=== PATIENT | male | born 1955 | race Caucasian/White ===

== ENCOUNTER 2016-10-27 18:41 | Emergency (ER) | payer BC ==
[~2016-10-27] VITALS: Ht 188 cm; Wt 147.0 kg
[~2016-10-27 18:41] MED LIST: DABI150 PO; FLEC100 PO; FURO1TAB93 PO; GLUC1000 PO; HYDR200T42 PO; JANU100T PO; LIPO150C3 PO; METH2.5 PO; METH4PAK PO; METO50TA PO; MINO50TA PO; OMEP20TA39 PO; PRAV20 PO; TAMS0.4C67 PO
[2016-10-27 18:46] VITALS: BP 110/59; PULSE 90; RESP 28; TEMP 101.8; O2SAT 97
--- NOTE | 2016-10-27 19:54 | PD ---
HPI Chief Complaint: GI Complaint Time Seen by Provider: 19:40 Travel History International Travel<30 days: No Contact w/Intl Traveler<30days: No History of Present Illness HPI 61-year-old male complaining of nausea and shaking chills. Patient states that the symptoms started this afternoon. Patient denies any headache. Patient denies any visual change. Patient denies any neck pain. Patient denies any chest pain or shortness of breath. Patient states that he has mild dry cough. Patient denies abdominal pain. Patient denies any vomiting or diarrhea. Patient denies any dysuria or frequency. Patient denies any back pain. Patient denies any focal weakness or numbness of the extremity. Patient states that he had flu shot a few months ago. Patient was seen by personal physician recently for anemia. Hemocculted stool was negative. Patient has been seen by GI specialist for that also. Patient pending endoscopy. PFSH Past Medical History Cancer: Yes (TESTICULAR) Cardiovascular Problems: Yes (CAD) Diabetes: Yes Hypertension: Yes Respiratory: Yes (SOB) Past Surgical History Pacemaker: No Social History Alcohol Use: Yes Tobacco Use: No (FORMER) Substance Use: No Allergies-Medications (Allergen,Severity, Reaction): Coded Allergies: Polysporin (Verified Allergy, Mild, Rash, 10/27/16) Reported Meds & Prescriptions Reported Meds & Active Scripts Active Reported Minocycline (Minocycline HCl) 50 Mg Cap 50 Mg PO BID Plaquenil (Hydroxychloroquine Sulfate) 200 Mg Tab 200 Mg PO BID Take with food Lasix (Furosemide) 40 Mg Tab 40 Mg PO DAILY Flecainide (Flecainide Acetate) 100 Mg Tab 100 Mg PO BID Lipofen (Fenofibrate) 150 Mg Cap 150 Mg PO HS Metformin (Metformin HCl) 1,000 Mg Tab 1,000 Mg PO BIDPC With meals Metoprolol Tartrate 50 Mg Tab 50 Mg PO TID Pradaxa (Dabigatran) 150 Mg Cap 150 Mg PO BID Pravastatin 20 Mg Tab 20 Mg PO DAILY Januvia (Sitagliptin Phosphate) 100 Mg Tab 100 Mg PO DAILY Flomax (Tamsulosin HCl) 0.4 Mg Cap 0.4 Mg PO HS Minocycline Hcl (Minocycline HCl) 50 Mg Cap 50 Mg PO DAILY Review of Systems General / Constitutional: Positive: Chills, No: Fever Eyes: No: Visual changes HENT: No: Headaches Cardiovascular: No: Chest Pain or Discomfort Respiratory: No: Shortness of Breath Gastrointestinal: Positive: Nausea, No: Abdominal Pain Genitourinary: No: Dysuria Musculoskeletal: No: Pain Skin: No Rash Neurologic: No: Weakness Psychiatric: No: Depression Endocrine: No: Polydipsia Hematologic/Lymphatic: No: Easy Bruising Physical Exam Narrative GENERAL: Well-nourished, well-developed patient. SKIN: Warm and dry. HEAD: Normocephalic. EYES: No scleral icterus. No injection or drainage. NECK: Supple, trachea midline. No JVD or lymphadenopathy. CARDIOVASCULAR: Regular rate and rhythm without murmurs, gallops, or rubs. RESPIRATORY: Breath sounds equal bilaterally. No accessory muscle use. GASTROINTESTINAL: Abdomen soft, non-tender, nondistended. MUSCULOSKELETAL: No cyanosis, or edema. BACK: Nontender without obvious deformity. No CVA tenderness. Neurologic exam normal. Data Data Last Documented VS Vital Signs Date Time Temp Pulse Resp B/P Pulse Ox O2 Delivery O2 Flow Rate FiO2 10/27/16 18:46 101.8 90 28 110/59 97 Room Air Orders Electrocardiogram (10/27/16 19:48) Complete Blood Count With Diff (10/27/16 19:48) Comprehensive Metabolic Panel (10/27/16 19:48) Troponin I (10/27/16 19:48) Urinalysis - C+S If Indicated (10/27/16 19:48) Influenzae A/B Antigen (10/27/16 19:48) Chest, Single Ap (10/27/16 19:48) Iv Access Insert/Monitor (10/27/16 19:48) Ecg Monitoring (10/27/16 19:48) Oximetry (10/27/16 19:48) Sodium Chlor 0.9% 1000 Ml Inj (Ns 1000 M (10/27/16 20:00) Ondansetron Inj (Zofran Inj) (10/27/16 20:00) Acetaminophen (Tylenol) (10/27/16 20:00) Labs Laboratory Tests Test 10/27/16 10/27/16 10/27/16 20:00 22:11 22:20 Sodium Level 134 MEQ/L Potassium Level 3.8 MEQ/L Chloride Level 101 MEQ/L Carbon Dioxide Level 20.7 MEQ/L Anion Gap 12 MEQ/L Blood Urea Nitrogen 14 MG/DL Creatinine 1.61 MG/DL Estimat Glomerular Filtration 44 ML/MIN Rate Random Glucose 93 MG/DL Calcium Level 8.6 MG/DL Total Bilirubin 0.5 MG/DL Aspartate Amino Transf 44 U/L (AST/SGOT) Alanine Aminotransferase 25 U/L (ALT/SGPT) Alkaline Phosphatase 50 U/L Troponin I LESS THAN 0.02 NG/ML Total Protein 8.1 GM/DL Albumin 3.4 GM/DL White Blood Count 6.0 TH/MM3 Red Blood Count 2.58 MIL/MM3 Hemoglobin 8.7 GM/DL Hematocrit 26.2 % Mean Corpuscular Volume 101.5 FL Mean Corpuscular Hemoglobin 33.6 PG Mean Corpuscular Hemoglobin 33.1 % Concent Red Cell Distribution Width 17.0 % Platelet Count 129 TH/MM3 Mean Platelet Volume 8.6 FL Neutrophils (%) (Auto) 88.1 % Lymphocytes (%) (Auto) 6.9 % Monocytes (%) (Auto) 4.4 % Eosinophils (%) (Auto) 0.1 % Basophils (%) (Auto) 0.5 % Neutrophils # (Auto) 5.3 TH/MM3 Lymphocytes # (Auto) 0.4 TH/MM3 Monocytes # (Auto) 0.3 TH/MM3 Eosinophils # (Auto) 0.0 TH/MM3 Basophils # (Auto) 0.0 TH/MM3 CBC Comment AUTO DIFF Differential Comment AUTO DIFF CONFIRMED Tear Drop Cells 1+ Ovalocytes 1+ Urine Color DARK-YELLOW Urine Turbidity HAZY Urine pH 5.0 Urine Specific Jber 1.019 Urine Protein 30 mg/dL Urine Glucose (UA) NEG mg/dL Urine Ketones TRACE mg/dL Urine Occult Blood NEG Urine Nitrite NEG Urine Bilirubin NEG Urine Urobilinogen 2.0 MG/DL Urine Leukocyte Esterase NEG Urine RBC 1 /hpf Urine WBC 2 /hpf Urine Squamous Epithelial 1 /hpf Cells Urine Hyaline Casts 18 /lpf Urine Mucus FEW /lpf Microscopic Urinalysis Comment CULT NOT INDICATED MDM Medical Decision Making Medical Screen Exam Complete: Yes Emergency Medical Condition: Yes Interpretation(s) Last Impressions Chest X-Ray 10/27/161947 Signed Impressions: Service Date/Time: Thursday, October 27, 2016 20:13 - CONCLUSION: Cardiomegaly without evidence of significant congestion or consolidating airspace disease. Milan Feldman MD 23:35 PM. CBC WBC 6.0. Hemoglobin 8.7 hematocrit 26.2. MCV 101.5. Platelet 129. 88 neutrophil. Sodium 134. Bicarbonate 20.7. Creatinine 1.61. Cardiac enzymes are normal. UA is negative. Differential Diagnosis Differential diagnosis including viral syndrome, bronchitis, pneumonia, UTI, sepsis. Narrative Course 61-year-old male with shaking chills and nausea. The symptoms started this afternoon. Normal saline solution 1 L IV bolus. Zofran 4 mg IV. Diagnosis Primary Impression: Viral syndrome Additional Impressions: Anemia Qualified Code: D64.9 - Anemia, unspecified type Renal insufficiency Patient Instructions: General Instructions Additional Instructions: Tylenol for fever aching pain. Follow-up with personal physician. Return if persistent problem or worse. Med/Other Pt SpecificInfo: Prescription(s) given, No Change to Meds Scripts Ondansetron Odt (Zofran Odt)4 Mg Tab4 Mg SL Q6HR PRN (Nausea/Vomiting) #10 TAB Prov:Wally Michaels MD 10/27/16 Disposition: DISCHARGE HOME Condition: Stable Wally Michaels MD Oct 27, 2016 19:54 Wally Michaels MD Oct 27, 2016 19:54
[2016-10-27] MEDS ORDERED: ACETAMINOPHEN 325 MG TAB PO ONE (20:00)
[2016-10-27] MEDS ORDERED: SODIUM CHLOR 0.9% 1000 ML INJ 1,000 ML IV ONE (20:00)
[2016-10-27] MEDS ORDERED: ONDANSETRON HCL 4 MG/2 ML VIAL IV PUSH ONE (20:00)
[2016-10-27] MEDS ORDERED: FURO1TAB60 PO (20:33)
[2016-10-27] MEDS ORDERED: METO50TA PO (20:33)
[2016-10-27] MEDS ORDERED: METF1000 PO (20:33)
[2016-10-27] MEDS ORDERED: MINO50CA PO (20:33)
[2016-10-27] MEDS ORDERED: PRAD150C PO (20:33)
[2016-10-27] MEDS ORDERED: TAMS5CAP PO (20:33)
[2016-10-27] MEDS ORDERED: LIPO150C3 PO (20:33)
[2016-10-27] MEDS ORDERED: SITA1TAB2 PO (20:33)
[2016-10-27] MEDS ORDERED: PLAQ200T PO (20:33)
[2016-10-27] MEDS ORDERED: FLEC100T PO (20:33)
[2016-10-27] MEDS ORDERED: PRAV20TA2 PO (20:33)
--- NOTE | 2016-10-27 20:59 | RADRPT ---
EXAM DATE/TIME: 10/27/2016 20:13 [facility] COMPARISON: No previous studies available for comparison. INDICATIONS : Chest pain. Fever. MEDICAL HISTORY : Diabetes mellitus type II. SURGICAL HISTORY : Ablation x 2 ENCOUNTER: Initial ACUITY: 2 days PAIN SCORE: 2/10 LOCATION: chest FINDINGS: Heart is moderately enlarged. There is no evidence of significant airspace disease or significant congestion. Osseous structures are intact. CONCLUSION: Cardiomegaly without evidence of significant congestion or consolidating airspace disease. Milan Feldman MD on October 27, 2016 at 20:57 Board Certified Radiologist. This report was verified electronically.
[2016-10-27 22:18] LABS: ALKALINE PHOSPHATASE 50 U/L (45-117); ALT (GPT) 25 U/L (12-78); ANION GAP 12 MEQ/L (5-15); AST (GOT) 44 U/L (15-37); BICARBONATE 20.7 MEQ/L (21.0-32.0); BLOOD UREA NITROGEN 14 MG/DL (7-18); CHLORIDE 101 MEQ/L (98-107); GLOMERULAR FILTRATION RATE 44 ML/MIN (>89); SODIUM (NA) 134 MEQ/L (136-145); TOTAL BILIRUBIN ADULT 0.5 MG/DL (0.2-1.0)
[2016-10-27 22:19] LABS: POTASSIUM 3.8 MEQ/L (3.5-5.1)
[2016-10-27 22:23] LABS: AUTOMATED NEUTROPHIL # 5.3 TH/MM3 (1.8-7.7); BASOPHIL % 0.5 % (0.0-2.0); EOSINOPHIL % 0.1 % (0.0-4.0); HEMATOCRIT 26.2 % (39.0-51.0); LYMPH % 6.9 % (9.0-44.0); LYMPHOCYTE # 0.4 TH/MM3 (1.0-4.8); MEAN CELL VOLUME 101.5 FL (80.0-100.0); MEAN CORPUSCULAR HEMOGLOBIN 33.6 PG (27.0-34.0); MEAN CORPUSCULAR HGB CONC 33.1 % (32.0-36.0); MONO % 4.4 % (0.0-8.0); NEUT % 88.1 % (16.0-70.0); PLATELET COUNT 129 TH/MM3 (150-450); RED BLOOD COUNT 2.58 MIL/MM3 (4.50-5.90)
[2016-10-27 22:28] LABS: HEMO FLAGS AUTO DIFF
[2016-10-27 22:43] LABS: BLOOD, URINE NEG (NEG); COMMENT (UR) CULT NOT INDICATED; CULTURE IF INDICATED CULT NOT INDICATED; GLUCOSE,URINE NEG (NEG); HYALINE CAST, URINE 18 /lpf (RARE); KETONE, URINE TRACE mg/dL (NEG); MUCUS URINE FEW /lpf (OCC); NITRITE,URINE NEG (NEG); SQUAMOUS EPITHELIAL CELL URINE 1 /hpf (0-5); URINE COLOR DARK-YELLOW (YELLW/STRAW)
[2016-10-27 23:03] LABS: OVALOCYTES 1+ (NORMAL); SCAN/DIFF AUTO DIFF CONFIRMED; TEARDROP RBCS 1+ (NORMAL)
[2016-10-27 23:30] VITALS: BP 98/60; PULSE 75; RESP 16; TEMP 98.4; O2SAT 95
[2016-10-27] MEDS ORDERED: ZOFR4TAB3 SL (23:53)
--- NOTE | 2016-10-28 19:06 | EKG ---
Date Performed: 10/27/2016 Time Performed: 20:39:33 PTAGE: 61 years EKG: Sinus rhythm WITH 1st DEGREE AV BLOCK, and premature atrial Contractions MARKED LEFT AXIS DEVIATION LOW QRS VOLTA GE IN PRECORDIAL LEADS CONSIDER ANTEROSEPTAL MYOCARDIAL INFARCTION-age Indeterminate. ABNORMAL ECG PREVIOUS TRACING : 10/06/2015 05.15 DOCTOR: Rusty Camacho Interpretating Date/Time 10/28/2016 19:04:28
== END 2016-10-28 00:34 | disposition home or self-care (01) ==
LOC: NEPA 18:41
DX: B34.9 Viral infection, unspecified (principal); D64.9 Anemia, unspecified; I25.10 Atherosclerotic heart disease of native coronary artery without angina pectoris; I10 Essential (primary) hypertension; N28.9 Disorder of kidney and ureter, unspecified; E11.9 Type 2 diabetes mellitus without complications; Z79.4 Long term (current) use of insulin
CPT/HCPCS: 71010; 80053; 81001; 84484; 85025; 87804; 93005; 96361; 96374; 99284; J2405; J7030

== ENCOUNTER 2017-01-05 06:32 | Day surgery (SDC) | payer BC ==
[~2017-01-05] VITALS: Ht 188 cm; Wt 140.0 kg
[~2017-01-05 06:32] MED LIST changes: -DABI150 PO; -FLEC100 PO; +FLEC100T PO; +FURO1TAB60 PO; -FURO1TAB93 PO; -GLUC1000 PO; -HYDR200T42 PO; -JANU100T PO; +METF1000 PO; -METH2.5 PO; -METH4PAK PO; +MINO50CA PO; -OMEP20TA39 PO; +PLAQ200T PO; +PRAD150C PO; -PRAV20 PO; +PRAV20TA2 PO; +SITA1TAB2 PO; -TAMS0.4C67 PO; +TAMS5CAP PO; +ZOFR4TAB3 SL
[2017-01-05 06:50] VITALS: BP 130/71; PULSE 55; RESP 20; TEMP 97.7; O2SAT 95
[2017-01-05] MEDS ORDERED: SODIUM CHLOR 0.9% 1000 ML INJ 1,000 ML IV SCH (07:00)
[2017-01-05] MEDS ORDERED: METH4TAB6 PO (07:06)
[2017-01-05 07:18] LABS: BASOPHIL % 0.6 % (0.0-2.0); EOSINOPHIL % 0.7 % (0.0-4.0); HEMATOCRIT 30.4 % (39.0-51.0); HEMO FLAGS DIFF FINAL; LYMPH % 31.3 % (9.0-44.0); LYMPHOCYTE # 0.7 TH/MM3 (1.0-4.8); MEAN CELL VOLUME 104.4 FL (80.0-100.0); MEAN CORPUSCULAR HEMOGLOBIN 32.2 PG (27.0-34.0); MEAN CORPUSCULAR HGB CONC 30.9 % (32.0-36.0); MONO % 23.5 % (0.0-8.0); NEUT % 43.9 % (16.0-70.0); PLATELET COUNT 214 TH/MM3 (150-450); RED BLOOD COUNT 2.91 MIL/MM3 (4.50-5.90); RED CELL DISTRIBUTION WIDTH 18.8 % (11.6-17.2); WHITE BLOOD COUNT 2.4 TH/MM3 (4.0-11.0)
[2017-01-05] MEDS ORDERED: LIDOCAINE 1%/EPINEPHrine 1:100,000 SOLN 20 ML VIAL ONE (07:19)
[2017-01-05] MEDS ORDERED: MIDAZOLAM HCL 5 MG/5 ML VIAL ONE (07:55)
[2017-01-05] MEDS ORDERED: fentaNYL CITRATE 250 MCG/5 ML AMP ONE (07:55)
[2017-01-05 09:05] VITALS: BP 104/55; PULSE 53; RESP 20; TEMP 97.5; O2SAT 94
[2017-01-05 09:08] LABS: BONE MARROW PROCESSING COMPLETE; IRON STAIN DONE; JENNER GIEMSA STAIN DONE
[2017-01-05 09:20] VITALS: BP 105/53; PULSE 51; RESP 20; O2SAT 93
[2017-01-05] MEDS ORDERED: oxyCODONE/ACETAMINOPHEN 5 MG/325 MG TAB PO PRN (09:30)
[2017-01-05 09:35] VITALS: BP 105/54; PULSE 51; RESP 16; O2SAT 94
[2017-01-05 10:00] VITALS: BP 101/52; PULSE 54; RESP 16; O2SAT 94
[2017-01-05 10:30] VITALS: BP 109/54; PULSE 53; RESP 16; O2SAT 96
--- NOTE | 2017-01-05 15:56 | RADRPT ---
EXAM DATE/TIME: 01/05/2017 08:12 [facility] COMPARISON: No previous studies available for comparison. INDICATIONS : Anemia. SEDATION TIME: 30 minutes BIOPSY SITE: Right iliac MEDICATION(S): 1.) 3 mg midazolam (Versed) IV 2.) 150 mcg fentanyl (Sublimaze) IV DEVICE(S): 1.) 11 gauge Bone marrow biopsy needle MEDICAL HISTORY : Diabetes mellitus type 2. Carcinoma, testicular. SURGICAL HISTORY : Right orchiectomy ENCOUNTER: Initial ACUITY: 1 day PAIN SCORE: 0/10 LOCATION: Right pelvis A total of one core specimen(s) were obtained and sent to the laboratory for pathologic evaluation. PROCEDURE: 1. CT guided bone marrow biopsy. 2. Conscious sedation with continuous EKG and oximetry monitoring. Prior to the procedure informed consent was obtained. Any appropriate prior imaging studies were rev iewed. Using automated exposure control and adjustment of the mA and/or kV according to patient size , radiation dose was kept as low as reasonably achievable to obtain optimal diagnostic quality images . The site was prepped in a sterile fashion. Full sterile technique was used, including cap, mask, darerll rile gloves and gown and a large sterile sheet. Hand hygiene and 2% chlorhexidine and/or betadine/al cohol prep was utilized per protocol for cutaneous antisepsis. The skin and subcutaneous tissues wer e infiltrated with local anesthetic solution. With CT guidance the previously identified target was localized. Biopsy was performed using the presc ribed needle as above. Following biopsy marrow aspiration was performed with repeat puncture. Adequa te hemostasis was obtained with compression at the puncture site. Follow-up CT scan reveals no hemorrhage. Conscious sedation was performed with the prescribed dosages and duration as above in the presence of an independent trained radiology nurse to assist in the monitoring of the patient. EKG and oximetry remained stable throughout the procedure. The patient tolerated the procedure well and there were no complications. The patient was sent to Radiology Outpatient Unit in stable condition. CONCLUSION: 1. Uncomplicated CT guided bone marrow aspirate. 2. Uncomplicated CT guided bone marrow biopsy. Jaskaran Santos MD on January 05, 2017 at 15:54 Board Certified Radiologist. This report was verified electronically.
== END 2017-01-05 10:58 | disposition home or self-care (01) ==
LOC: HRAD 06:32 → HRIP 06:36 → HRAD 10:58
PROVIDERS: ATTEND Internal Medicine Hematology & Oncology
DX: D64.9 Anemia, unspecified (principal); E11.9 Type 2 diabetes mellitus without complications; I48.91 Unspecified atrial fibrillation; Z85.47 Personal history of malignant neoplasm of testis; I10 Essential (primary) hypertension; N40.0 Benign prostatic hyperplasia without lower urinary tract symptoms; M06.9 Rheumatoid arthritis, unspecified
CPT/HCPCS: 38221; 77012; 85025; 85097; 88184; 88185; 88237; 88264; 88280; 88305; 88311; 88313; 88341; 88342; 99152; 99153; C1830; G0364; J2250; J3010; J7030

== ENCOUNTER 2017-01-26 12:11 | Inpatient (IN) | payer BC ==
[~2017-01-26] VITALS: Ht 188 cm; Wt 143.0 kg
[~2017-01-26 12:11] MED LIST changes: -MINO50CA PO; -MINO50TA PO; -ZOFR4TAB3 SL
[2017-01-30] MEDS ORDERED: METH1TAB29 PO (08:41)
[2017-01-30] MEDS ORDERED: MINO50CA PO (08:42)
[2017-02-06] MEDS ORDERED: ROPIVACAINE 0.5% PF INJ 30 ML VIAL NERV BLOCK ONE (07:40)
[2017-02-06 09:19] VITALS: BP 182/90; PULSE 52; RESP 18; TEMP 98.9; O2SAT 98
[2017-02-06] MEDS ORDERED: INSULIN HUMAN REGULAR 1,000 UNITS/10 ML VIAL SQ PRN (09:30)
[2017-02-06] MEDS ORDERED: METOPROLOL TARTRATE 25 MG TAB PO PRN (09:30)
[2017-02-06] MEDS ORDERED: LACTATED RINGER'S 1000 ML IV PRN (09:30)
[2017-02-06] MEDS ORDERED: VANCOMYCIN 1000 MG/NS 250 ML (for <70 kg) IV SCH ×2 (09:30)
[2017-02-06] MEDS ORDERED: SODIUM CHLORID 0.9% 500 ML IV PRN (09:30)
[2017-02-06] MEDS ORDERED: POVIDONE IODINE 5% (ANTISEPSIS KIT) 4 APPLICATIONS EACH NARE PRN (09:30)
[2017-02-06] MEDS ORDERED: BUPIVACAINE LIPOSO PF 1.3% INJ 20 ML, BUPIVACAINE PF 0.25% INJ 20 ML in SODIUM CHLORIDE... P-ARTICULR SCH (09:30)
[2017-02-06] MEDS ORDERED: ceFAZolin 2 GM PREMIX 50 ML IV SCH (09:30)
[2017-02-06] MEDS ORDERED: CHLORHEXIDINE GLUCONATE 4% SOLN 120 ML BTL TOPICAL SCH (09:30)
[2017-02-06] MEDS ORDERED: CHLORHEXIDINE GLUCONATE 2 % 1 PACK (2 CLOTHS) TOPICAL PRN (09:30)
[2017-02-06] MEDS ORDERED: SODIUM CHLORIDE 0.9% IV SCH ×4 (09:30)
[2017-02-06] MEDS ORDERED: TRANEXAMIC ACID IV SCH ×4 (09:30)
[2017-02-06] MEDS ORDERED: ONDANSETRON HCL 4 MG/2 ML VIAL IV PUSH ONE (10:07)
[2017-02-06] MEDS ORDERED: PROPOFOL 200 MG/20 ML AMP IV ONE (10:07)
[2017-02-06] MEDS ORDERED: NEOSTIGMINE 3 MG/3 ML SYR IV ONE (10:07)
[2017-02-06] MEDS ORDERED: LACTATED RINGER'S 1000 ML INJ 1,000 ML IV ONE (10:07)
[2017-02-06] MEDS ORDERED: ACETAMINOPHEN 1000 MG/100 ML VIAL IV ONE (10:22)
[2017-02-06] MEDS ORDERED: DEXAMETHASONE SOD PHOS 4 MG/ML VIAL ONE (10:23)
[2017-02-06] MEDS ORDERED: ceFAZolin INJ 1,000 MG VIAL ONE (11:32)
[2017-02-06] MEDS ORDERED: fentaNYL CITRATE 250 MCG/5 ML AMP ONE (11:46)
[2017-02-06] MEDS ORDERED: MIDAZOLAM HCL 2 MG/2 ML VIAL ONE (11:46)
[2017-02-06] MEDS ORDERED: ADJUSTABLE COMM1 MIS (11:57)
[2017-02-06] MEDS ORDERED: CPMMACHINE (11:57)
[2017-02-06] MEDS ORDERED: WALKER WHEELS/F1 MIS (11:57)
[2017-02-06] MEDS ORDERED: NALOXONE HCL 0.4 MG/ML AMP IV PRN (12:00)
[2017-02-06] MEDS ORDERED: ONDANSETRON HCL 4 MG/2 ML VIAL IVP PRN (12:00)
[2017-02-06] MEDS ORDERED: diphenhydrAMINE HCL 50 MG/ML VIAL IV PRN (12:00)
[2017-02-06] MEDS ORDERED: TRANEXAMIC ACID INJ 0 MG in SODIUM CHLORIDE 0.9% INJ 100 ML IV SCH (12:00)
[2017-02-06] MEDS ORDERED: SODIUM CHLORIDE 0.9% FLUSH 5 ML FLUSH IVF PRN (12:00)
[2017-02-06] MEDS ORDERED: Post-op Orders (for Pharmacy) MISC XX ONE (12:00)
[2017-02-06] MEDS ORDERED: TEMAZEPAM 15 MG CAP PO PRN (12:00)
[2017-02-06] MEDS ORDERED: ACETAMINOPHEN 325 MG TAB PO PRN (12:00)
[2017-02-06] MEDS ORDERED: BUPIVACAINE LIPOSOME PF 1.3% 20 ML VIAL INFIL ONE (12:58)
[2017-02-06] MEDS ORDERED: DO NOT ADM ANY ANTICOAGULANT DRUGS PRN (15:15)
[2017-02-06] MEDS: MORPHINE SULFATE 30 MG/30 ML PCA IV SCH ×2 (15:30→21:00)
[2017-02-06] MEDS: LACTATED RINGER'S 1000 ML INJ 1,000 ML IV SCH (15:35)
--- NOTE | 2017-02-06 16:30 | RADRPT ---
EXAM DATE/TIME: 02/06/2017 15:34 [facility] COMPARISON: No previous studies available for comparison. INDICATIONS : Post operation total knee replacement. MEDICAL HISTORY : None. SURGICAL HISTORY : None. ENCOUNTER: Initial ACUITY: 1 day PAIN SCORE: 0/10 LOCATION: Left knee FINDINGS: Postsurgical features of left knee arthroplasty. The arthroplasty components are in anatomic alignmen t. The osseous structures are intact without evidence for acute bony fracture. Postsurgical soft tiss ue changes are noted. CONCLUSION: 1. Expected postoperative changes of left knee arthroplasty without evidence for significant acute [place] fracture. Preston Khan MD on February 06, 2017 at 16:27 Board Certified Radiologist. This report was verified electronically.
--- NOTE | 2017-02-06 17:23 | PD.CONS ---
HPI Service [facility] Consult Requested By Reason for Consult Medical Management Primary Care Physician Marbella Bland MD Diagnoses: (1) Osteoarthritis of left knee (2) Sleep apnea (3) Diabetes (4) Atrial fibrillation (5) Status post total left knee replacement History of Present Illness Mr. Hillman is a 61 year old male admitted for a left knee total joint replacement secondary to chronic and progressive left knee osteoarthritis. I am seeing him post op and he did well in the surgery and thus far is recovering well. Pain is controlled when seen. No nausea. Patient has post op lethargy which prevents a clear history. However, he has prior visits which provide insight into his other history. Review of Systems Constitutional: DENIES: Fatigue, Fever, Chills Eyes: DENIES: Blurred vision, Diplopia Ears, nose, mouth, throat: DENIES: Hearing loss, Vertigo Respiratory: DENIES: Cough, Wheezing, Shortness of breath Cardiovascular: DENIES: Chest pain, Palpitations, Syncope Gastrointestinal: DENIES: Abdominal pain, Black stools, Bloody stools Musculoskeletal: COMPLAINS OF: Joint pain, Stiffness Integumentary: DENIES: Abnormal pigmentation Hematologic/lymphatic: DENIES: Bruising Immunologic/allergic: DENIES: Eczema Neurologic: DENIES: Abnormal gait Psychiatric: DENIES: Anxiety, Confusion Past Family Social History Allergies: Coded Allergies: Polysporin (Verified Allergy, Mild, Rash, 02/06/17) Past Medical History A-fib Sleep Apnea DM2 HTN Anemia Hx of Testicular Cancer Past Surgical History Left wrist Right shoulder Left forearm Left Knee Right Knee Appendectomy Cardiac Ablation Right orchectomy Reported Medications Reported Meds & Active Scripts Active Reported Minocycline (Minocycline HCl) 50 Mg Cap 50 Mg PO DAILY Medrol (Methylprednisolone) 2 Mg Tab 2 Mg PO DAILY Plaquenil (Hydroxychloroquine Sulfate) 200 Mg Tab 200 Mg PO BID Take with food Lasix (Furosemide) 40 Mg Tab 40 Mg PO DAILY Flecainide (Flecainide Acetate) 100 Mg Tab 100 Mg PO BID Lipofen (Fenofibrate) 150 Mg Cap 150 Mg PO HS Metformin (Metformin HCl) 1,000 Mg Tab 1,000 Mg PO BIDPC With meals Metoprolol Tartrate 50 Mg Tab 50 Mg PO TID Pradaxa (Dabigatran) 150 Mg Cap 150 Mg PO BID Pravastatin 20 Mg Tab 20 Mg PO DAILY Januvia (Sitagliptin Phosphate) 100 Mg Tab 100 Mg PO DAILY Flomax (Tamsulosin HCl) 0.4 Mg Cap 0.4 Mg PO HS Active Ordered Medications Administered Medications Medications (Trade) Dose Ordered Sig/Vishal Route PRN Reason Start Time Stop Time Status Last Admin Dose Admin Lactated Ringer's 1,000 ml @ 30 mls/hr Q24H PRN IV SEE LABEL COMMENTS 02/06/17 09:30 02/09/17 09:29 02/06/17 09:30 Tranexamic Acid 1403 mg/Sodium Chloride 114.03 ml @ 200 mls/ hr ONCE IV 02/06/17 09:30 02/07/17 09:29 02/06/17 12:20 Tranexamic Acid 1403 mg/Sodium Chloride 114.03 ml @ 200 mls/ hr ONCE IV 02/06/17 09:30 02/07/17 09:29 02/06/17 15:43 Lactated Ringer's (Lr 1000 ml Inj) 1,000 ml @ 80 mls/hr [id number] IV 02/06/17 11:49 02/06/17 15:35 Morphine Sulfate (Morphine 1 Mg/ ml [employer]IL [employer]ER) 30 mg UNSCH IV 02/06/17 12:00 02/06/17 15:30 Family History None reported by patient Social History History of smoking, no recent smoking Occasional Alcohol use No drug abuse Physical Exam Vital Signs Vital Signs Date Time Temp Pulse Resp B/P Pulse Ox O2 Delivery O2 Flow Rate FiO2 02/06/17 16:15 45 17 129/57 97 02/06/17 16:00 44 12 133/63 100 02/06/17 15:45 45 15 141/63 100 Nasal Cannula 2 02/06/17 15:30 97.4 47 17 123/61 99 Nasal Cannula 2 02/06/17 15:30 12 02/06/17 09:19 98.9 52 18 182/90 98 Physical Exam GENERAL: NAD, A&Ox3, Lethargy (anesthesia related) SKIN: Warm and dry. HEAD: Normocephalic. EYES: No scleral icterus. No injection or drainage. NECK: Supple, trachea midline. No JVD or lymphadenopathy. CARDIOVASCULAR: Regular rate and rhythm without murmurs, gallops, or rubs. RESPIRATORY: Breath sounds equal bilaterally. No accessory muscle use. GASTROINTESTINAL: Abdomen soft, non-tender, nondistended. MUSCULOSKELETAL: No cyanosis, or edema. Left leg bandaged. BACK: Nontender without obvious deformity. No CVA tenderness. Laboratory Laboratory Tests Test 02/06/17 09:10 Blood Type O POSITIVE Antibody Screen NEGATIVE Imaging Last Impressions Knee X-Ray 02/06/17 1149 Signed Impressions: Service Date/Time: Monday, February 06, 2017 15:34 - CONCLUSION: 1. Expected postoperative changes of left knee arthroplasty without evidence for significant acute bony fracture. Preston Khan MD Assessment and Plan Problem List: (1) Diabetes ICD Code: E11.9 Status: Acute (2) Atrial fibrillation ICD Code: I48.91 Status: Acute (3) Osteoarthritis of left knee ICD Code: M17.12 Status: Acute (4) Status post total left knee replacement ICD Code: Z96.652 Status: Acute (5) Sleep apnea ICD Code: G47.30 Status: Acute Assessment and Plan Assessment and Plan 61 year old male status post left TKA. Osteoarthritis S/P Left TKA PRN pain treatments Ortho following Bedrest for now Out of bed and start PT when lethargy resolves Follow CBC in AM A-fib hx Hx of Cardiac Ablation Follow on telemetry overnight No tachycardia when seen Sleep Apnea Oxygen at night DM2 Insulin Sliding Scale Diabetic Diet Follow blood sugars Continue baseline treatments HTN Follow BP Continue baseline treatments Adjust if needed Anemia Follow CBC Hx of Testicular Cancer Follow as an outpatient BPH Flomax DVT Prophylaxis Collins Curtis MD Feb 06, 2017 17:23
[2017-02-06] MEDS: METOPROLOL TARTRATE 50 MG TAB PO SCH (18:00)
[2017-02-06] MEDS: metFORMIN HCL 500 MG TAB PO SCH (18:42)
[2017-02-06 20:55] VITALS: BP 115/68; PULSE 46; RESP 18; TEMP 97.1; O2SAT 96
[2017-02-06] MEDS: SODIUM CHLORIDE 0.9% FLUSH 5 ML FLUSH IVF SCH (21:00)
[2017-02-06] MEDS: HYDROXYCHLOROQUINE SULFATE 200 MG TAB PO SCH (21:07)
[2017-02-06] MEDS: FENOFIBRATE 145 MG TAB PO SCH (21:07)
[2017-02-06] MEDS: TAMSULOSIN HCL 0.4 MG CAP PO SCH (21:07)
[2017-02-06] MEDS: PCA - TOTAL MG MORPHINE DELIVERED PER SHIFT SCH (21:12)
[2017-02-06] MEDS: FLECAINIDE ACETATE 100 MG TAB PO SCH (21:15)
[2017-02-07] VITALS (7 sets, daily range): BP systolic 99–141; BP diastolic 57–81; PULSE 45–85; RESP 18; TEMP 96.4–99; O2SAT 91–98
[2017-02-07] MEDS: LACTATED RINGER'S 1000 ML INJ 1,000 ML IV SCH (00:41)
[2017-02-07] MEDS: PCA - TOTAL MG MORPHINE DELIVERED PER SHIFT SCH ×2 (05:29→14:00)
--- NOTE | 2017-02-07 06:41 | MP ---
cc: Hamilton NEWSOME. DATE OF SURGERY 02/06/2017 PREOPERATIVE DIAGNOSIS Osteoarthritic degeneration left knee. POSTOPERATIVE DIAGNOSIS Osteoarthritic degeneration left knee. SURGERY PERFORMED Left total knee arthroplasty using Consensus knee system, size 6 femur 4 tibia, size 3 x 10 mm patella and size 12 insert with two batches of DePuy cement. SURGEON Dr. Newsome DAIRY PROCESSING SUPERVISOR WINSTON Dunn ANESTHESIA General intubation and femoral nerve block PROCEDURE After successful induction of anesthesia, the patient is placed on the operating room table in the supine position. The knee is prepped and draped in the usual manner. A tourniquet is inflated at the upper thigh and set to 300 mmHg pressure after exsanguination of the lower extremity. A longitudinal incision is made extending from 3 inches proximal to the superior pole of the patella, across the patella in longitudinal fashion, and down past the insertion of the tibial tubercle into the proximal tibia. The incision is carried down through subcutaneous tissue along the medial aspect of the patella and retinaculum, down through the capsule to expose the knee joint. The patella and patellar tendon are freed up enough to allow the patella to be inverted and retracted off the lateral side of the knee joint. The knee joint is left exposed. Small osteophytes are removed. All soft tissue is removed to allow proper position of the femoral and tibial cutting jig guide. The first femoral jig is then inserted along the distal end of the femur after first measuring to decide whether this is a small, medium, or large component. The notch is then drilled and the tibial cutting guide inserted into the femoral cutting guide, along with the ankle brace to allow for proper measurement of the tibial cutting surface that needed to be resected. Pins are inserted into the tibial cutting jig and femoral cutting jig to hold them in place. An oscillating saw is then used to resect the surface of the tibia. The surface of the tibia is then completely removed using sharp and blunt dissection. The anterior and posterior cuts of the femur are then made as well using an oscillating saw through the cutting guide. All guides are then removed and the varus/valgus angulation cutting guide applied to the femur for proper measurement of the proper amount of valgus. The anterior cutting guide for the femur is then inserted at the anterior femoral cuts made. Next, the first block trial is inserted into the femur to allow for proper condyle drill holes to be made which are then made followed by removal of the bone between the condyles using an oscillating saw as well as the bone removed at the most posterior surface of the condyle. After this, this guide is removed and the chamfer cuts made using the chamfer cutting guide from both anterior and posterior. Next, the femoral trial is then inserted, the tibial surface reflected anterior to expose the tibial surface and a tibial stem guide is inserted after first measuring for a standard, standard plus, large, or large plus surface to be used. After the stem is impacted the trial tibial surface is applied followed by the trial meniscal components. After full range of motion is found with the appropriate length meniscal components varying the patella is prepared by resecting the posterior aspect of the patella using an oscillating saw, inserting a trial. The trial is then removed and the cruciate cutting guide applied using the bur to cut the cruciate cuts. After cruciate cuts are made all trials are removed. The wound is irrigated copiously with antibiotic solution and Water-Pik and the actual components inserted into place using Consensus knee system, size 6 femur 4 tibia, size 3 x 10 mm patella and size 12 insert with two batches of Shoptagr cement. After the cement has hardened and the components are found to have full range of motion with no instability, the tourniquet is deflated, total tourniquet time being 63 minutes at 300 mmHg pressure. The wound again is irrigated copiously with antibiotic solution, meticulous hemostasis achieved 120 cc of Exparel used as an extra block around the knee joint. The deep fascia approximated with running #2 quill, subcutaneous tissue approximated using interrupted 2-0 and 4-0 Monocryl suture. Steri-Strips, sterile dressing and knee immobilizer. No drain utilized. Estimated blood loss 200 cc. Sponge and suture count correct. WINSTON Dunn was present during the entire procedure to include patient positioning and the procedure. The medical necessity of a nurse practitioner and assistant director of public works was indicated in this case due to the surgical complexity of the case itself. During the surgical case, the surgical garment inspector was working the back table while my surgical garment inspector WINSTON was directly assisting it. The patient tolerated the procedure well and left the operating room in satisfactory condition. MD NIRANJAN Aguilar/AMELIA /2:44 PM /6:35 AM
[2017-02-07 07:24] LABS: HEMATOCRIT 27.5 % (39.0-51.0); MEAN CELL VOLUME 102.9 FL (80.0-100.0); MEAN CORPUSCULAR HEMOGLOBIN 32.2 PG (27.0-34.0); MEAN CORPUSCULAR HGB CONC 31.3 % (32.0-36.0); PLATELET COUNT 147 TH/MM3 (150-450); RED BLOOD COUNT 2.68 MIL/MM3 (4.50-5.90); RED CELL DISTRIBUTION WIDTH 16.5 % (11.6-17.2); REVIEW FLAG FINAL; WHITE BLOOD COUNT 5.8 TH/MM3 (4.0-11.0)
[2017-02-07 07:54] LABS: BICARBONATE 30.6 MEQ/L (21.0-32.0); POTASSIUM 4.2 MEQ/L (3.5-5.1)
[2017-02-07] MEDS: metFORMIN HCL 500 MG TAB PO SCH ×2 (08:10→17:24)
[2017-02-07] MEDS: MINOCYCLINE HCL 50 MG CAP PO SCH (08:10)
[2017-02-07] MEDS: PRAVASTATIN SOD 20 MG TAB PO SCH (08:11)
[2017-02-07] MEDS: FLECAINIDE ACETATE 100 MG TAB PO SCH ×2 (08:11→21:51)
[2017-02-07] MEDS: methylPREDNISolone 4 MG TAB PO SCH (08:11)
[2017-02-07] MEDS: FUROSEMIDE 40 MG TAB PO SCH (08:11)
[2017-02-07] MEDS: HYDROXYCHLOROQUINE SULFATE 200 MG TAB PO SCH ×2 (08:12→21:51)
--- NOTE | 2017-02-07 08:12 | PD.ORT.PN ---
Subjective Post Op Day #: POD 1 Pain Scale: 09/05 Subjective Remarks "Doing well, good morning" disscussed castle /[facility] post D/C Ax3 NAD Pleasant, cooperative Range of Motion NAD, MURPHY, CPM not in use , cooling pack intact Objective Vitals Vital Signs Date Time Temp Pulse Resp B/P Pulse Ox O2 Delivery O2 Flow Rate FiO2 02/07/17 07:40 96.4 50 18 99/57 96 02/07/17 05:29 18 02/07/17 05:00 97.3 45 18 113/65 91 02/07/17 00:15 97.0 47 18 119/66 97 02/06/17 21:12 18 02/06/17 21:00 18 02/06/17 20:55 97.1 46 18 115/68 96 02/06/17 16:15 45 17 129/57 97 02/06/17 16:00 44 12 133/63 100 02/06/17 15:45 45 15 141/63 100 Nasal Cannula 2 02/06/17 15:30 97.4 47 17 123/61 99 Nasal Cannula 2 02/06/17 15:30 12 02/06/17 09:19 98.9 52 18 182/90 98 I/O 02/06/17 02/06/17 02/06/17 02/07/17 02/07/17 02/07/17 07:00 15:00 23:00 07:00 15:00 23:00 Intake Total 1680 ml 480 ml Output Total 1200 ml 1000 ml Balance 480 ml -520 ml Intake Oral 480 ml 480 ml Other 1200 ml Output Urine Total 1000 ml 1000 ml Estimated Blood Loss 200 ml # Bowel Movements 0 0 Result Diagram: 02/07/17 0627 02/07/17 0627 Imaging Last 24 hours Impressions Knee X-Ray 02/06/17 1149 Signed Impressions: Service Date/Time: Monday, February 06, 2017 15:34 - CONCLUSION: 1. Expected postoperative changes of left knee arthroplasty without evidence for significant acute bony fracture. Preston Khan MD Objective Remarks In bed, dressing clean/dry /intact: CMS wnl, moving toes, with feeling on palpation Pedal/Post tibial pulses 2+ IV fluids and COAL HAULER continue.. Assessment & Plan Assessment and Plan Continue with current POC, hospital Meds continue. Continue D/C Planing Left knee arthroplasty /follow up as instructed Ramonita Raya Feb 07, 2017 08:12
[2017-02-07] MEDS: SODIUM CHLORIDE 0.9% FLUSH 5 ML FLUSH IVF SCH ×3 (09:00→23:59)
[2017-02-07] MEDS: ENOXAPARIN SODIUM 30 MG/0.3 ML SYRINGE SQ SCH ×2 (11:59→23:59)
[2017-02-07] MEDS: METOPROLOL TARTRATE 50 MG TAB PO SCH ×3 (11:59→18:00)
[2017-02-07] MEDS: ACETAMINOPHEN/HYDROcodone 325 MG/7.5 MG TAB PO PRN ×3 (13:31→21:50)
--- NOTE | 2017-02-07 14:42 | HHI.PR ---
Subjective Remarks Hemoglobin dropped to 8.6. Patient is able to sit in chair today. Pain control. Likely will need inpatient rehabilitation versus [facility] facility. Objective Vital Signs Date Time Temp Pulse Resp B/P Pulse Ox O2 Delivery O2 Flow Rate FiO2 02/07/17 12:00 97.3 56 18 118/69 98 02/07/17 07:40 96.4 50 18 99/57 96 02/07/17 05:29 18 02/07/17 05:00 97.3 45 18 113/65 91 02/07/17 00:15 97.0 47 18 119/66 97 02/06/17 21:12 18 02/06/17 21:00 18 02/06/17 20:55 97.1 46 18 115/68 96 02/06/17 16:15 45 17 129/57 97 02/06/17 16:00 44 12 133/63 100 02/06/17 15:45 45 15 141/63 100 Nasal Cannula 2 02/06/17 15:30 97.4 47 17 123/61 99 Nasal Cannula 2 02/06/17 15:30 12 I/O 02/06/17 02/06/17 02/06/17 02/07/17 02/07/17 02/07/17 07:00 15:00 23:00 07:00 15:00 23:00 Intake Total 1680 ml 1727 ml Output Total 1200 ml 1000 ml Balance 480 ml 727 ml Intake Oral 480 ml 480 ml IV Total 1247 ml Other 1200 ml Output Urine Total 1000 ml 1000 ml Estimated Blood Loss 200 ml # Bowel Movements 0 0 Result Diagram: 02/07/17 0627 02/07/17626 Objective Remarks GENERAL: NAD, A&Ox3 HEAD: Normocephalic. NECK: Supple, trachea midline. No lymphadenopathy. EYES: No scleral icterus. No injection or drainage. CARDIOVASCULAR: Regular rate and rhythm without murmurs, gallops, or rubs. RESPIRATORY: Breath sounds equal bilaterally. No accessory muscle use. GASTROINTESTINAL: Abdomen soft, non-tender, nondistended. MUSCULOSKELETAL: No cyanosis, or edema. Left Knee Bandaged. SKIN: Warm and dry. NEURO: No focal neurological deficitis. Medications and IVs Administered Medications Medications (Trade) Dose Ordered Sig/Vishal Route PRN Reason Start Time Stop Time Status Last Admin Dose Admin Lactated Ringer's (Lr 1000 ml Inj) 1,000 ml @ 30 mls/hr Q24H PRN IV SEE LABEL COMMENTS 02/06/17 09:30 02/09/17 09:29 02/06/17 09:30 Flecainide Acetate (Tambocor) 100 mg BID PO 02/06/17 21:00 02/07/17 08:11 Furosemide (Lasix) 40 mg DAILY PO 02/07/17 09:00 02/07/17 08:11 Hydroxychloroquine Sulfate (Plaquenil) 200 mg BID PO 02/06/17 21:00 02/07/17 08:12 Metformin HCl (Glucophage) 1,000 mg BIDPC PO 02/06/17 18:00 02/07/17 08:10 Methylprednisolone (Medrol) 2 mg DAILY PO 02/07/17 09:00 02/07/17 08:11 Metoprolol Tartrate (Lopressor) 50 mg TID PO 02/06/17 13:00 02/07/17 11:59 Minocycline HCl (Minocin) 50 mg DAILY PO 02/07/17 09:00 02/07/17 08:10 Pravastatin Sodium (Pravachol) 20 mg DAILY PO 02/07/17 09:00 02/07/17 08:11 Sitagliptin Phosphate (Januvia) 100 mg DAILY PO 02/07/17 09:00 02/07/17 08:10 Tamsulosin HCl (Flomax) 0.4 mg HS PO 02/06/17 21:00 02/06/17 21:07 Fenofibrate 145 mg 145 mg HS PO 02/06/17 21:00 02/06/17 21:07 Lactated Ringer's (Lr 1000 ml Inj) 1,000 ml @ 80 mls/hr [id number] IV 02/06/17 11:49 02/07/17 00:41 Enoxaparin Sodium (Lovenox Inj) 30 mg Q12H SQ 02/07/17 11:49 02/07/17 11:59 Acetaminophen/ Hydrocodone Bitart ([place] 7.5-325 Mg) 1 tab Q4H PRN PO PAIN 3-5 02/06/17 12:00 02/07/17 13:31 Morphine Sulfate (Morphine 1 Mg/ ml LOGGING TRACTOR OPERATOR) 30 mg UNSCH IV 02/06/17 12:00 02/06/17 21:00 LOGGING TRACTOR OPERATOR Dosage Infused (Pha) 1 Q8HR .XX 02/06/17 14:00 02/07/17 05:29 A/P Problem List: (1) Anemia ICD Code: D64.9 (2) Renal insufficiency ICD Code: N28.9 (3) Viral syndrome ICD Code: B34.9 (4) Atrial fibrillation ICD Code: I48.91 (5) Diabetes ICD Code: E11.9 (6) Other subluxation of left wrist and hand, initial encounter ICD Code: S63.092A (7) Left carpal tunnel syndrome ICD Code: G56.02 (8) Sleep apnea ICD Code: G47.30 (9) Osteoarthritis of left knee ICD Code: M17.12 (10) Status post total left knee replacement ICD Code: Z96.652 Assessment and Plan Assessment and Plan 61 year old male status post left TKA. Tolerating PT today. Plan for transfer to rehabilitation when discharge occurs. Follow CBC. Osteoarthritis S/P Left TKA PRN pain treatments Ortho following Bedrest for now Out of bed and start PT when lethargy resolves Follow CBC in AM A-fib hx Hx of Cardiac Ablation Follow on telemetry overnight No tachycardia when seen Sleep Apnea Oxygen at night DM2 Insulin Sliding Scale Diabetic Diet Follow blood sugars Continue baseline treatments HTN Follow BP Continue baseline treatments Adjust if needed Anemia Worsened postop Follow CBC Hx of Testicular Cancer Follow as an outpatient BPH Flomax DVT Prophylaxis Collins Curtis MD Feb 07, 2017 14:42
[2017-02-07] MEDS: FENOFIBRATE 145 MG TAB PO SCH (21:51)
[2017-02-07] MEDS: DOCUSATE SODIUM 100 MG CAP PO SCH (21:51)
[2017-02-07] MEDS: TAMSULOSIN HCL 0.4 MG CAP PO SCH (21:52)
[2017-02-07] MEDS: MULTIVITAMINS/MINERALS THERAPEUTIC TAB PO SCH (21:52)
[2017-02-08] VITALS (9 sets, daily range): BP systolic 101–129; BP diastolic 56–70; PULSE 60–90; RESP 18–22; TEMP 97.1–100; O2SAT 92–97
[2017-02-08] MEDS: ACETAMINOPHEN/HYDROcodone 325 MG/7.5 MG TAB PO PRN ×4 (02:42→23:40)
[2017-02-08] MEDS: PCA - TOTAL MG MORPHINE DELIVERED PER SHIFT SCH ×4 (06:00→20:37)
[2017-02-08 08:02] LABS: HEMATOCRIT 27.6 % (39.0-51.0); REVIEW FLAG FINAL
[2017-02-08 08:07] LABS: HEMATOCRIT 28.4 % (39.0-51.0); MEAN CORPUSCULAR HEMOGLOBIN 31.9 PG (27.0-34.0); MEAN CORPUSCULAR HGB CONC 31.3 % (32.0-36.0); PLATELET COUNT 152 TH/MM3 (150-450); RED BLOOD COUNT 2.79 MIL/MM3 (4.50-5.90); RED CELL DISTRIBUTION WIDTH 16.5 % (11.6-17.2); REVIEW FLAG FINAL; WHITE BLOOD COUNT 7.2 TH/MM3 (4.0-11.0)
[2017-02-08] MEDS ORDERED: HYDR-3580 PO (08:13)
--- NOTE | 2017-02-08 08:24 | HHI.FF ---
Face to Face Verification Diagnosis: (1) Status post total left knee replacement Physical Therapy Gait training Knee: Total knee, Protocol: Left, Full weight bearing Canvas Knee Splint: When in bed & 2 pillows btw thighs Nursing RN: 3 days/week x 2 weeks Nursing: Nevin teaching, Dressing changes Dressing Changes: Daily dressing change, 4x4s, Gauze, Paper tape I have seen patient Will Hillman on 02/08/17. My clinical findings support the need for the requested home health care services because: Limited ability to care for self High risk of falls I certify that my clinical findings support that this patient is homebound because: Unsteady gait/balance Campbell Newsome MD Feb 08, 2017 08:23
--- NOTE | 2017-02-08 09:25 | PD.ORT.PN ---
Subjective Subjective Remarks pt comfortable today. No complaints. Objective Vitals Vital Signs Date Time Temp Pulse Resp B/P Pulse Ox O2 Delivery O2 Flow Rate FiO2 02/08/17 08:00 97.4 90 18 105/61 93 02/08/17 06:00 18 02/08/17 04:00 97.1 83 22 104/56 95 02/08/17 00:00 97.6 79 20 129/70 93 02/07/17 20:00 97.1 85 18 139/81 94 02/07/17 16:00 99.0 60 18 141/61 98 02/07/17 12:40 93 Nasal Cannula 2.00 02/07/17 12:00 97.3 56 18 118/69 98 I/O 02/07/17 02/07/17 02/07/17 02/08/17 02/08/17 02/08/17 06:59 14:59 22:59 06:59 14:59 22:59 Intake Total 1727 ml 720 ml 1000 ml 500 ml Output Total 1000 ml Balance 727 ml 720 ml 1000 ml 500 ml Intake Oral 480 ml 720 ml 1000 ml 500 ml IV Total 1247 ml Output Urine Total 1000 ml # Voids 4 2 2 # Bowel Movements 0 0 0 0 Result Diagram: 02/08/17 0735 02/07/17 0627 Imaging Last 24 hours Impressions Knee X-Ray 02/06/17 1149 Signed Impressions: Service Date/Time: Monday, February 06, 2017 15:34 - CONCLUSION: 1. Expected postoperative changes of left knee arthroplasty without evidence for significant acute bony fracture. Preston Khan MD Objective Remarks In bed, dressing clean/dry /intact: CMS wnl, moving toes, with feeling on palpation Pedal/Post tibial pulses 2+ IV fluids and COST ACCOUNTANT continue.. Assessment & Plan Ortho Post Op Day #: 2 Problem List: Assessment and Plan SNF tomorrow vs rehab unit inpatient. Continue with current POC, hospital Meds continue. Continue D/C Planing Left knee arthroplasty /follow up as instructed Campbell Newsome MD Feb 08, 2017 09:25
--- NOTE | 2017-02-08 09:27 | HHI.DS ---
Discharge Summary Admission Date Feb 06, 2017 at 08:29 Discharge Date: Feb 09, 2017 Admitting Diagnosis Osteoarthritic degeneration left knee Diagnosis: (1) Status post total left knee replacement Diagnosis: Principal Brief History This is a 61 year old male patient CBC/BMP: 02/08/17 0735 02/07/17 0627 Significant Findings Laboratory Tests Test 02/07/17 02/08/17 06:27 07:35 Red Blood Count 2.68 MIL/MM3 2.79 MIL/MM3 (4.50-5.90) (4.50-5.90) Hemoglobin 8.6 GM/DL 8.9 GM/DL (13.0-17.0) (13.0-17.0) Hematocrit 27.5 % 28.4 % (39.0-51.0) (39.0-51.0) Mean Corpuscular Volume 102.9 FL 102.0 FL (80.0-100.0) (80.0-100.0) Mean Corpuscular Hemoglobin 31.3 % 31.3 % Concent (32.0-36.0) (32.0-36.0) Platelet Count 147 TH/MM3 (150-450) Calcium Level 8.4 MG/DL (8.5-10.1) PE at Discharge In bed, dressing clean/dry /intact: CMS wnl, moving toes, with feeling on palpation Pedal/Post tibial pulses 2+ IV fluids and SALES PROFESSIONAL continue.. Hospital Course This patient underwent a left total knee arthroplasty on day of admission. He received a course of prophylactic IV antibiotics and within 23 hours started back on his anticoagulation therapy. He continued to improve remained afebrile vital signs stable and neurovascularly intact did have a low hemoglobin down to 8.6 and then 8.9 on postop day 2. He was managed by a medical physician as well and continued to improve tolerating food and fluid well and switched to by mouth pain meds on postoperative day #2. He was discharged on postoperative day #3 with instructions for group home facility versus in home rehabilitation in good condition. Pt Condition on Discharge: Good Discharge Disposition: Discharge to SNF Discharge Instructions Diet Instructions: Diabetic Diet Activities You Can Perform: Full Weight Bearing, Shower Only-No Bath Activities to Avoid: Bathing, Driving Campbell Newsome MD Feb 08, 2017 09:27
[2017-02-08] MEDS: metFORMIN HCL 500 MG TAB PO SCH ×2 (10:13→17:23)
[2017-02-08] MEDS: methylPREDNISolone 4 MG TAB PO SCH (10:13)
[2017-02-08] MEDS: HYDROXYCHLOROQUINE SULFATE 200 MG TAB PO SCH ×2 (10:15→20:28)
[2017-02-08] MEDS: PRAVASTATIN SOD 20 MG TAB PO SCH (10:15)
[2017-02-08] MEDS ORDERED: BACITRACIN OINT 0.9 GM PKT TOP PRN (10:15)
[2017-02-08] MEDS: METOPROLOL TARTRATE 50 MG TAB PO SCH ×3 (10:15→17:24)
[2017-02-08] MEDS: MINOCYCLINE HCL 50 MG CAP PO SCH (10:15)
[2017-02-08] MEDS: MULTIVITAMINS/MINERALS THERAPEUTIC TAB PO SCH ×2 (10:16→20:28)
[2017-02-08] MEDS: DOCUSATE SODIUM 100 MG CAP PO SCH ×2 (10:16→20:28)
[2017-02-08] MEDS: FUROSEMIDE 40 MG TAB PO SCH (10:16)
[2017-02-08] MEDS: FLECAINIDE ACETATE 100 MG TAB PO SCH ×2 (10:17→20:28)
--- NOTE | 2017-02-08 10:40 | HHI.PR ---
Subjective Remarks Patient continues to use oxygen. His hemoglobin has increased to 8.9. Pain is controlled. No nausea or vomiting. Constipation is present. Objective Vital Signs Date Time Temp Pulse Resp B/P Pulse Ox O2 Delivery O2 Flow Rate FiO2 02/08/17 08:00 97.4 90 18 105/61 93 02/08/17 06:00 18 02/08/17 04:00 97.1 83 22 104/56 95 02/08/17 00:00 97.6 79 20 129/70 93 02/07/17 20:00 97.1 85 18 139/81 94 02/07/17 16:00 99.0 60 18 141/61 98 02/07/17 12:40 93 Nasal Cannula 2.00 02/07/17 12:00 97.3 56 18 118/69 98 I/O 02/07/17 02/07/17 02/07/17 02/08/17 02/08/17 02/08/17 07:00 15:00 23:00 07:00 15:00 23:00 Intake Total 1727 ml 720 ml 1000 ml 500 ml Output Total 1000 ml Balance 727 ml 720 ml 1000 ml 500 ml Intake Oral 480 ml 720 ml 1000 ml 500 ml IV Total 1247 ml Output Urine Total 1000 ml # Voids 4 2 2 # Bowel Movements 0 0 0 0 Result Diagram: 02/08/17 0735 02/07/17 0627 Objective Remarks GENERAL: NAD, A&Ox3 HEAD: Normocephalic. NECK: Supple, trachea midline. No lymphadenopathy. EYES: No scleral icterus. No injection or drainage. CARDIOVASCULAR: Regular rate and rhythm without murmurs, gallops, or rubs. RESPIRATORY: Breath sounds equal bilaterally. No accessory muscle use. GASTROINTESTINAL: Abdomen soft, non-tender, nondistended. MUSCULOSKELETAL: No cyanosis, or edema. Left Knee Bandaged. SKIN: Warm and dry. NEURO: No focal neurological deficitis. A/P Problem List: (1) Anemia ICD Code: D64.9 (2) Renal insufficiency ICD Code: N28.9 (3) Viral syndrome ICD Code: B34.9 (4) Atrial fibrillation ICD Code: I48.91 (5) Diabetes ICD Code: E11.9 (6) Other subluxation of left wrist and hand, initial encounter ICD Code: S63.092A (7) Left carpal tunnel syndrome ICD Code: G56.02 (8) Sleep apnea ICD Code: G47.30 (9) Osteoarthritis of left knee ICD Code: M17.12 (10) Status post total left knee replacement ICD Code: Z96.652 Assessment and Plan Assessment and Plan 61 year old male status post left TKA. Tolerating PT today. Medically clear for discharge to a rehabilitation facility. Continue rehabilitation. Milk of magnesia for constipation. Osteoarthritis S/P Left TKA PRN pain treatments Ortho following Out of bed with physical therapy. Continue physical therapy A-fib hx Hx of Cardiac Ablation Follow on telemetry overnight No tachycardia when seen Sleep Apnea Oxygen at night DM2 Insulin Sliding Scale Diabetic Diet Follow blood sugars Continue baseline treatments HTN Follow BP Continue baseline treatments Adjust if needed Anemia Slow improvement Monitor CBC as an outpatient intermittently. Hx of Testicular Cancer Follow as an outpatient BPH Flomax DVT Prophylaxis Collins Curtis MD Feb 08, 2017 10:40
[2017-02-08] MEDS: ENOXAPARIN SODIUM 30 MG/0.3 ML SYRINGE SQ SCH ×2 (12:57→23:40)
[2017-02-08] MEDS: MAGNESIUM HYDROXIDE SUSP 30 ML CUP PO PRN (12:57)
[2017-02-08] MEDS: LACTATED RINGER'S 1000 ML INJ 1,000 ML IV SCH ×3 (13:49→20:37)
[2017-02-08] MEDS: FENOFIBRATE 145 MG TAB PO SCH (20:28)
[2017-02-08] MEDS: SODIUM CHLORIDE 0.9% FLUSH 5 ML FLUSH IVF SCH (20:28)
[2017-02-08] MEDS: TAMSULOSIN HCL 0.4 MG CAP PO SCH (20:28)
[2017-02-09 04:45] VITALS: BP 94/58; PULSE 61; RESP 18; TEMP 97.4; O2SAT 94
[2017-02-09 07:20] VITALS: PULSE 64
[2017-02-09 08:00] VITALS: BP 117/53; PULSE 62; RESP 18; TEMP 98.8; O2SAT 93
[2017-02-09 08:54] LABS: HEMATOCRIT 27.5 % (39.0-51.0); MEAN CELL VOLUME 102.6 FL (80.0-100.0); MEAN CORPUSCULAR HEMOGLOBIN 31.9 PG (27.0-34.0); PLATELET COUNT 138 TH/MM3 (150-450); RED BLOOD COUNT 2.68 MIL/MM3 (4.50-5.90); RED CELL DISTRIBUTION WIDTH 16.8 % (11.6-17.2); REVIEW FLAG FINAL; WHITE BLOOD COUNT 7.3 TH/MM3 (4.0-11.0)
[2017-02-09] MEDS: SODIUM CHLORIDE 0.9% FLUSH 5 ML FLUSH IVF SCH (09:00)
[2017-02-09] MEDS: MINOCYCLINE HCL 50 MG CAP PO SCH (09:08)
[2017-02-09] MEDS: HYDROXYCHLOROQUINE SULFATE 200 MG TAB PO SCH (09:08)
[2017-02-09] MEDS: methylPREDNISolone 4 MG TAB PO SCH (09:08)
[2017-02-09] MEDS: metFORMIN HCL 500 MG TAB PO SCH ×2 (09:08→17:15)
[2017-02-09] MEDS: METOPROLOL TARTRATE 50 MG TAB PO SCH ×3 (09:08→17:15)
[2017-02-09] MEDS: MULTIVITAMINS/MINERALS THERAPEUTIC TAB PO SCH (09:09)
[2017-02-09] MEDS: PRAVASTATIN SOD 20 MG TAB PO SCH (09:09)
[2017-02-09] MEDS: ACETAMINOPHEN/HYDROcodone 325 MG/7.5 MG TAB PO PRN ×2 (09:09→17:16)
[2017-02-09] MEDS: FUROSEMIDE 40 MG TAB PO SCH (09:09)
[2017-02-09] MEDS: FLECAINIDE ACETATE 100 MG TAB PO SCH (09:09)
[2017-02-09] MEDS: DOCUSATE SODIUM 100 MG CAP PO SCH (09:09)
[2017-02-09 09:23] LABS: BICARBONATE 27.4 MEQ/L (21.0-32.0); POTASSIUM 3.5 MEQ/L (3.5-5.1)
[2017-02-09 12:00] VITALS: BP 98/64; PULSE 62; RESP 18; TEMP 97.5; O2SAT 100
[2017-02-09] MEDS: ENOXAPARIN SODIUM 30 MG/0.3 ML SYRINGE SQ SCH (12:45)
[2017-02-09] MEDS: MAGNESIUM HYDROXIDE SUSP 30 ML CUP PO PRN (12:45)
[2017-02-09] MEDS: PCA - TOTAL MG MORPHINE DELIVERED PER SHIFT SCH (12:48)
--- NOTE | 2017-02-09 14:48 | HHI.PR ---
Subjective Remarks Weaned off oxygen. Hemoglobin has an upper trend. Patient's ablation is slowly improving that he would benefit from further rehabilitation. Inpatient rehabilitation versus prison facility. Medically clear for discharge when available. Objective Vital Signs Date Time Temp Pulse Resp B/P Pulse Ox O2 Delivery O2 Flow Rate FiO2 02/09/17 12:00 97.5 62 18 98/64 100 02/09/17 09:48 Nasal Cannula 2.00 02/09/17 08:15 Room Air 02/09/17 08:00 98.8 62 18 117/53 93 02/09/17 07:20 64 02/09/17 04:45 97.4 61 18 94/58 94 02/08/17 23:44 100.0 69 18 101/56 92 02/08/17 22:41 94 02/08/17 20:50 99.2 83 18 105/58 92 02/08/17 16:00 99.0 74 18 110/61 94 I/O 02/08/17 02/08/17 02/08/17 02/09/17 02/09/17 02/09/17 07:00 15:00 23:00 07:00 15:00 23:00 Intake Total 500 ml 960 ml 480 ml 240 ml Output Total 200 ml 200 ml Balance 500 ml 760 ml 480 ml 40 ml Intake Oral 500 ml 960 ml 480 ml 240 ml Output Urine Total 200 ml 200 ml # Voids 2 2 1 # Bowel Movements 0 0 0 0 Result Diagram: 02/09/17 0811 02/09/17 0811 Objective Remarks GENERAL: NAD, A&Ox3 HEAD: Normocephalic. NECK: Supple, trachea midline. No lymphadenopathy. EYES: No scleral icterus. No injection or drainage. CARDIOVASCULAR: Regular rate and rhythm without murmurs, gallops, or rubs. RESPIRATORY: Breath sounds equal bilaterally. No accessory muscle use. GASTROINTESTINAL: Abdomen soft, non-tender, nondistended. MUSCULOSKELETAL: No cyanosis, or edema. Left Knee Bandaged. SKIN: Warm and dry. NEURO: No focal neurological deficitis. A/P Problem List: (1) Anemia ICD Code: D64.9 (2) Renal insufficiency ICD Code: N28.9 (3) Viral syndrome ICD Code: B34.9 (4) Atrial fibrillation ICD Code: I48.91 (5) Diabetes ICD Code: E11.9 (6) Other subluxation of left wrist and hand, initial encounter ICD Code: S63.092A (7) Left carpal tunnel syndrome ICD Code: G56.02 (8) Sleep apnea ICD Code: G47.30 (9) Osteoarthritis of left knee ICD Code: M17.12 (10) Status post total left knee replacement ICD Code: Z96.652 Assessment and Plan Assessment and Plan 61 year old male status post left TKA. Now off oxygen. Tolerating PT today. Medically clear for discharge to a rehabilitation facility. Continue rehabilitation. Milk of magnesia for constipation. Osteoarthritis S/P Left TKA PRN pain treatments Ortho following Out of bed with physical therapy. Continue physical therapy A-fib hx Hx of Cardiac Ablation Follow on telemetry overnight No tachycardia when seen Sleep Apnea Oxygen at night DM2 Insulin Sliding Scale Diabetic Diet Follow blood sugars Continue baseline treatments HTN Follow BP Continue baseline treatments Adjust if needed Anemia Slow improvement Monitor CBC as an outpatient intermittently. Hx of Testicular Cancer Follow as an outpatient BPH Flomax DVT Prophylaxis Lovekaykayx Collins Garcia MD Feb 09, 2017 2:47 pm
[2017-02-09] MEDS: LACTATED RINGER'S 1000 ML INJ 1,000 ML IV SCH (14:49)
[2017-02-09 16:00] VITALS: BP 132/58; PULSE 65; RESP 18; TEMP 98.7; O2SAT 100
--- NOTE | 2017-02-09 16:11 | PD.ORT.PN ---
Subjective Post Op Day #: 3 Pain Scale: moderate Subjective Remarks OK Range of Motion on CPM Distance Walked To bathroom with help Objective Vitals Vital Signs Date Time Temp Pulse Resp B/P Pulse Ox O2 Delivery O2 Flow Rate FiO2 02/09/17 12:00 97.5 62 18 98/64 100 02/09/17 09:48 Nasal Cannula 2.00 02/09/17 08:15 Room Air 02/09/17 08:00 98.8 62 18 117/53 93 02/09/17 07:20 64 02/09/17 04:45 97.4 61 18 94/58 94 02/08/17 23:44 100.0 69 18 101/56 92 02/08/17 22:41 94 02/08/17 20:50 99.2 83 18 105/58 92 I/O 02/08/17 02/08/17 02/08/17 02/09/17 02/09/17 02/09/17 07:00 15:00 23:00 07:00 15:00 23:00 Intake Total 500 ml 960 ml 480 ml 240 ml Output Total 200 ml 200 ml Balance 500 ml 760 ml 480 ml 40 ml Intake Oral 500 ml 960 ml 480 ml 240 ml Output Urine Total 200 ml 200 ml # Voids 2 2 1 # Bowel Movements 0 0 0 0 Result Diagram: 02/09/17 0811 02/09/17 0811 Imaging Last 24 hours Impressions Knee X-Ray 02/06/17 1149 Signed Impressions: Service Date/Time: Monday, February 06, 2017 15:34 - CONCLUSION: 1. Expected postoperative changes of left knee arthroplasty without evidence for significant acute bony fracture. Preston Khan MD Objective Remarks In bed, dressing clean/dry /intact , able to do quads well and even SLR Moves toes well. Not much swelling.. Assessment & Plan Ortho Post Op Day #: 3 Problem List: (1) Status post total left knee replacement Assessment and Plan Patients request to go to [facility] by insurance, now waiting for approval for SNF. I dont see why he could not gp home with [facility]. I told that if SNF not approved by ins they would have no choice. I have encouraged nursing and PT to work to encourage him to go home with [facility] Kade Jenkins MD Feb 09, 2017 16:11
== END 2017-02-09 18:53 | DRG 470 ==
LOC: HSDI 02-06 08:29 → N06A 02-06 17:52
PROVIDERS: ADMIT Surgery; ATTEND Surgery
PROC: 3E0T3CZ (ICD-10-PCS; 2017-02-06)
PROC: 0SRD0J9 Replacement of Left Knee Joint with Synthetic Substitute, Cemented, Open Approach (ICD-10-PCS; principal; 2017-02-06 11:59)
DX: M17.12 Unilateral primary osteoarthritis, left knee (principal); I48.91 Unspecified atrial fibrillation; I10 Essential (primary) hypertension; E11.9 Type 2 diabetes mellitus without complications; D64.9 Anemia, unspecified; G56.02 Carpal tunnel syndrome, left upper limb; G47.30 Sleep apnea, unspecified; B34.9 Viral infection, unspecified; K59.00 Constipation, unspecified; N28.9 Disorder of kidney and ureter, unspecified; N40.0 Benign prostatic hyperplasia without lower urinary tract symptoms; Z85.47 Personal history of malignant neoplasm of testis; Z87.891 Personal history of nicotine dependence
CPT/HCPCS: 73560; 80048; 82948; 85014; 85018; 85027; 86850; 86900; 86901; 94150; C1776; C9290; J0131; J0690; J1100; J1650; J2250; J2270; J2405; J2710; J2795; J3010; J3370; J7050; J7120; J7509; L1830

== ENCOUNTER → 2017-01-30 | Outpatient (CLI) | payer BC ==
[~2017-01-30] MED LIST changes: +ADJUSTABLE COMM1 MIS; +CPMMACHINE; +HYDR-3580 PO; +METH1TAB29 PO; +METH4TAB6 PO; +MINO50CA PO; +MINO50TA PO; +WALKER WHEELS/F1 MIS
[2017-01-30 09:51] LABS: AUTOMATED NEUTROPHIL # 1.3 TH/MM3 (1.8-7.7); BASOPHIL % 0.7 % (0.0-2.0); EOSINOPHIL % 0.9 % (0.0-4.0); HEMATOCRIT 33.4 % (39.0-51.0); HEMO FLAGS DIFF FINAL; LYMPH % 25.9 % (9.0-44.0); LYMPHOCYTE # 0.7 TH/MM3 (1.0-4.8); MEAN CELL VOLUME 103.7 FL (80.0-100.0); MEAN CORPUSCULAR HEMOGLOBIN 31.8 PG (27.0-34.0); MEAN CORPUSCULAR HGB CONC 30.6 % (32.0-36.0); MONO % 20.9 % (0.0-8.0); NEUT % 51.6 % (16.0-70.0); PLATELET COUNT 147 TH/MM3 (150-450); RED BLOOD COUNT 3.22 MIL/MM3 (4.50-5.90); RED CELL DISTRIBUTION WIDTH 17.2 % (11.6-17.2); WHITE BLOOD COUNT 2.5 TH/MM3 (4.0-11.0)
[2017-01-30 10:03] LABS: APTT (PATIENT) 36.5 SEC (24.3-30.1); INTERNATIONAL NORMALIZED RATIO 1.1 RATIO; PROTHROMBIN TIME - PATIENT 12.6 SEC (9.8-11.6)
[2017-01-30 10:12] LABS: BACTERIA, URINE OCC /hpf; BLOOD, URINE NEG (NEG); COMMENT (UR) CULT NOT INDICATED; CULTURE IF INDICATED CULT NOT INDICATED; GLUCOSE,URINE NEG (NEG); HYALINE CAST, URINE 1 /lpf (RARE); KETONE, URINE NEG (NEG); MUCUS URINE FEW /lpf (OCC); NITRITE,URINE NEG (NEG); SQUAMOUS EPITHELIAL CELL URINE 1 /hpf (0-5); URINE COLOR YELLOW (YELLW/STRAW)
[2017-01-30 10:23] LABS: ALT (GPT) 22 U/L (12-78); ANION GAP 9 MEQ/L (5-15); AST (GOT) 28 U/L (15-37); BLOOD UREA NITROGEN 9 MG/DL (7-18); CHLORIDE 103 MEQ/L (98-107); GLOMERULAR FILTRATION RATE 72 ML/MIN (>89); GLUCOSE,FASTING 88 MG/DL (74-99); POTASSIUM 3.6 MEQ/L (3.5-5.1); SODIUM (NA) 138 MEQ/L (136-145)
[2017-01-30 10:26] LABS: ALKALINE PHOSPHATASE 46 U/L (45-117); TOTAL BILIRUBIN ADULT 0.3 MG/DL (0.2-1.0)
== END ==
LOC: CPRE 08:14
PROVIDERS: ATTEND Surgery
DX: Z01.812 Encounter for preprocedural laboratory examination (principal); Z79.01 Long term (current) use of anticoagulants
CPT/HCPCS: 36415; 80053; 81001; 85025; 85610; 85730

== ENCOUNTER 2017-12-03 08:00 | Inpatient (IN) | payer BC ==
[~2017-12-03] VITALS: Ht 188 cm; Wt 149.5 kg
[~2017-12-03 08:00] MED LIST changes: -ADJUSTABLE COMM1 MIS; -CPMMACHINE; -FURO1TAB60 PO; -HYDR-3580 PO; -LIPO150C3 PO; -METH1TAB29 PO; -METH4TAB6 PO; -METO50TA PO; -MINO50CA PO; -MINO50TA PO; -WALKER WHEELS/F1 MIS
[2017-12-03] MEDS ORDERED: METO25TA3 PO (13:34)
[2017-12-03] MEDS ORDERED: METH8TAB3 PO (13:45)
[2017-12-03] MEDS ORDERED: TAMS0.4C4 PO (13:45)
[2017-12-03] MEDS ORDERED: SACC1CAP3 PO (13:45)
[2017-12-03] MEDS ORDERED: VITA500T4 PO (13:45)
[2017-12-05] VITALS (14 sets, daily range): BP systolic 90–154; BP diastolic 55–67; PULSE 56–72; RESP 17–19; TEMP 97.9–98.3; O2SAT 92–97
[2017-12-05] MEDS ORDERED: PROTAMINE SULFATE 50 MG/5 ML VIAL ONE (06:54)
[2017-12-05] MEDS ORDERED: BUPIVACAINE HCL PF 0.5% 30 ML VIAL ONE (06:54)
[2017-12-05] MEDS ORDERED: HEPARIN SODIUM - IV 10,000 UNITS/10 ML VIAL ONE (06:54)
[2017-12-05] MEDS ORDERED: THROMBIN (TOPICAL) 20,000 UNIT SPRAY KIT ONE (06:55)
[2017-12-05] MEDS ORDERED: ceFAZolin INJ 1,000 MG VIAL ONE ×2 (06:55→08:29)
[2017-12-05] MEDS ORDERED: HEPARIN-NS/PF INJ 500 ML ONE (06:55)
[2017-12-05] MEDS ORDERED: LACTATED RINGER'S 1000 ML IV PRN (07:00)
[2017-12-05] MEDS ORDERED: POVIDONE IODINE 5% (ANTISEPSIS KIT) 4 APPLICATIONS EACH NARE PRN (07:00)
[2017-12-05] MEDS ORDERED: METOPROLOL TARTRATE 25 MG TAB PO PRN (07:00)
[2017-12-05] MEDS ORDERED: CHLORHEXIDINE GLUCONATE 2 % 1 PACK (2 CLOTHS) TOPICAL PRN (07:00)
[2017-12-05] MEDS ORDERED: SODIUM CHLORID 0.9% 500 ML IV PRN (07:00)
--- NOTE | 2017-12-05 07:18 | PD.VS.PN ---
Pre-operative Note Pre-operative diagnosis: PAD, R LE claudication Planned procedure: R groin reconstruction Interval History: Pt feeling well but worsening claudication R LE. No rest pain and no wounds. No F/C or other interval changes that would preclude OR. Labs: pending Blood: T&S Imaging: CTA reviewed Orders: NPO Ancef 2g IV OCTOR Post-operative destination: PACU and then CPCU Operative site marked: Yes Consent: Informed consent has been obtained from Will Hillman. I have explained the procedure in detail and discussed the risks, benefits, and potential complications. All questions have been answered. Patient contact information: [phone] Izaiah Simms MD Dec 05, 2017 07:18
[2017-12-05] MEDS ORDERED: MIDAZOLAM HCL 2 MG/2 ML VIAL ONE (07:43)
[2017-12-05] MEDS ORDERED: FAMOTIDINE 20 MG/2 ML VIAL ONE (07:43)
[2017-12-05] MEDS ORDERED: ACETAMINOPHEN 1000 MG/100 ML 100 ML IV ONE (07:43)
[2017-12-05 07:45] LABS: INTERNATIONAL NORMALIZED RATIO 1.1 RATIO; PROTHROMBIN TIME - PATIENT 10.7 SEC (9.8-11.6)
[2017-12-05 07:49] LABS: AUTOMATED NEUTROPHIL # 2.1 TH/MM3 (1.8-7.7); BASOPHIL % 0.5 % (0.0-2.0); EOSINOPHIL % 0.4 % (0.0-4.0); HEMATOCRIT 35.6 % (39.0-51.0); HEMOGLOBIN 11.3 GM/DL (13.0-17.0); LYMPH % 24.8 % (9.0-44.0); LYMPHOCYTE # 0.9 TH/MM3 (1.0-4.8); MEAN CELL VOLUME 96.5 FL (80.0-100.0); MEAN CORPUSCULAR HEMOGLOBIN 30.8 PG (27.0-34.0); MEAN CORPUSCULAR HGB CONC 31.9 % (32.0-36.0); MEAN PLATELET VOLUME 7.9 FL (7.0-11.0); MONO % 17.8 % (0.0-8.0); MONOCYTE # 0.7 TH/MM3 (0-0.9); NEUT % 56.5 % (16.0-70.0); PLATELET COUNT 133 TH/MM3 (150-450); RED BLOOD COUNT 3.69 MIL/MM3 (4.50-5.90); RED CELL DISTRIBUTION WIDTH 16.7 % (11.6-17.2); WHITE BLOOD COUNT 3.8 TH/MM3 (4.0-11.0)
[2017-12-05 07:58] LABS: CALCIUM 8.7 MG/DL (8.5-10.1); CREATININE 0.94 MG/DL (0.60-1.30)
[2017-12-05 08:21] LABS: BANDS 12 % (0-6); BASOPHILS 1 % (0-2); LYMPHOCYTES 29 % (9-44); MONOCYTES 10 % (0-8); MYELOCYTES 4 % (0-0); NEUTROPHIL # MANUAL DIFF 2.2 TH/MM3 (1.8-7.7); OVALOCYTES 1+ (NORMAL); POLYS (SEG NEUTROPHILS) 43 % (16-70)
--- NOTE | 2017-12-05 10:31 | HHI.PR ---
cc: Marbella Bland MD; Izaiah Simms MD Immediate Post Op Note Procedure Date: Dec 05, 2017 Pre Op Diagnosis: R LE claudication, PAD Post Op Diagnosis: R LE claudication, PAD Surgeon: Izaiah Simms Farmworker Bulbs(s): Kiya Nicholson Procedure: R ilioprofunda bypass with 8mm Dacron R NUCLEAR MEDICINE CHIEF TECHNOLOGIST-SFA bypass with 8mm Dacron Findings: severe calcific occlusive disease palpable profunda pulse and graft dependent Doppler signal in R foot at conclusion of case Complications: none Specimen(s) removed: none for pathology Estimated blood loss: 150mL Anesthesia: General Drains: None Fluids: 1800mL IVF Urinary Output (mLs): 450 Patient to: PACU Patient Condition: Good Implant/Devices: SEE IMPLANT LOG (if applicable) Date/Time of Procedure: SEE SURGICAL CARE RECORD Izaiah Simms MD Dec 05, 2017 10:31
[2017-12-05] MEDS ORDERED: LACTULOSE SYRUP 20 GM/30 ML CUP PO PRN (10:45)
[2017-12-05] MEDS ORDERED: SENNOSIDES 8.6 MG TAB PO PRN (10:45)
[2017-12-05] MEDS ORDERED: MAGNESIUM HYDROXIDE SUSP 30 ML CUP PO PRN (10:45)
[2017-12-05] MEDS ORDERED: BISACODYL 10 MG SUPP RECTAL PRN (10:45)
[2017-12-05] MEDS ORDERED: DO NOT ADM ANY ANTICOAGULANT DRUGS PRN (10:49)
[2017-12-05] MEDS ORDERED: LIDOCAINE HCL 1% PF 5 ML SYRINGE OTHER ONE (12:00)
[2017-12-05] MEDS ORDERED: ROCURONIUM INJ 50 MG/5 ML SYRINGE IV PUSH ONE (12:00)
[2017-12-05] MEDS ORDERED: NORMOSOL R INJ 1,000 ML IV ONE (12:00)
[2017-12-05] MEDS ORDERED: SUCCINYLCHOLINE CHLORIDE 100 MG/5 ML SYRINGE IV PUSH ONE (12:00)
[2017-12-05] MEDS ORDERED: ceFAZolin INJ 1,000 MG VIAL IV ONE (12:00)
[2017-12-05] MEDS ORDERED: SODIUM CHLORIDE 0.9% 20 ML VIAL IV ONE (12:00)
[2017-12-05] MEDS ORDERED: PHENYLEPH/NS 1000 MCG/10 ML SYR IV ONE (12:00)
[2017-12-05] MEDS ORDERED: ePHEDrine/NS 25 MG/5 ML SYRINGE IV ONE (12:00)
[2017-12-05] MEDS ORDERED: LACTATED RINGER'S 1000 ML INJ 1,000 ML IV ONE (12:00)
[2017-12-05] MEDS ORDERED: PROPOFOL 200 MG/20 ML AMP IV ONE (12:00)
[2017-12-05] MEDS ORDERED: ONDANSETRON HCL 4 MG/2 ML VIAL IV ONE (12:00)
--- NOTE | 2017-12-05 12:01 | MP ---
cc: Izaiah Simms MD DATE OF OPERATION: 12/05/17 PREOPERATIVE DIAGNOSIS: Peripheral arterial occlusive disease, right lower extremity claudication. POSTOPERATIVE DIAGNOSIS: Peripheral arterial occlusive disease, right lower extremity claudication. PROCEDURES: 1. Right ilioprofunda bypass with 8 mm Dacron. 2. Right common femoral to superficial femoral artery bypass with 8 mm Dacron. ATTENDING SURGEON: Izaiah Simms MD SCHOOL SPEECH THERAPIST SURGEON: JOE Castaneda PA/Roll Off Driver ANESTHESIA: General. INDICATION: Mr. Hillman is a 62-year-old gentleman with short distance right lower extremity claudication. Preoperative imaging suggested it was predominantly common femoral occlusive disease, and he is taken to the operating room for groin reconstruction. DESCRIPTION OF PROCEDURE: Informed consent was obtained from the patient. He was taken to the operating room and placed supine on the operating room table. An appropriate timeout was taken to ensure the patient's identity, operative site and panned procedure. The administration of 3 grams of Ancef was initiated prior skin incision and will be discontinued after a single preoperative dose. Everyone in the room agreed with timeout and we proceeded. He was prepped from his nipples to his knees. A vertical incision was made in the patient's right groin and carried down through subcutaneous tissue with electrocautery. Superficial femoral artery, both branches of the profunda and external iliac artery were dissected free and encircled with vessel loops. The side branches of the common femoral artery were ligated with 3-0 silk. The patient was systemically heparinized with 10,000 units of IV heparin. Proximal control of the external iliac artery was obtained with profunda clamp and distal control of both branches of the profunda was obtained with profunda clamps, as well as the SFA was obtained with profunda clamps. The entire common femoral and proximal SFA were resected and the profunda was endarterectomized. The external iliac artery was endarterectomized. An 8 mm Dacron was brought up onto the field and sewn end-to-end to the external iliac artery and end-to-end to the profunda using running 5-0 Prolene suture. At the completion, it was flushed and noted to be hemostatic. The clamps were released and there was a nice palpable pulse in both profunda branches. The graft was clamped proximally and distally and a longitudinal graftotomy was made with an 11 blade, extended with Lynbrook scissors. Another piece of 8 mm Dacron was spatulated and sewn end to side to the graft with running 5-0 Prolene suture. At the completion, the clamps were released and a separate clamp was placed on the jump graft. The SFA was spatulated and an end-to-end anastomosis from the new 8 mm Dacron was created using running 5-0 Prolene suture. At the completion, it was flushed and noted to be hemostatic. There were pulses in the SFA and both branches of the profunda outflow and additionally, there was a nice Doppler signal in the foot. The heparin was reversed with protamine. The wound was irrigated, infiltrated with Marcaine, made hemostatic and closed with 2-0 Polysorb, 3-0 Polysorb and 4-0 Monocryl. The sponge and needle counts were correct at the end of the case. I was present, scrubbed and performed the entire procedure. MD DEVNY Elena/JIMBO , 11:14 AM , 12:00 PM THIAGO
[2017-12-05] MEDS ORDERED: PILL SPLITTER OTHER PRN (12:30)
[2017-12-05] MEDS: METOPROLOL TARTRATE 25 MG TAB PO SCH ×2 (13:00→17:43)
[2017-12-05] MEDS: metFORMIN HCL 500 MG TAB PO SCH (17:41)
[2017-12-05] MEDS: MORPHINE SULFATE 4 MG/ML INJ IV PUSH PRN ×2 (20:14→22:10)
[2017-12-05] MEDS: TAMSULOSIN HCL 0.4 MG CAP PO SCH (20:16)
[2017-12-05] MEDS: FAMOTIDINE 20 MG TAB PO SCH (20:17)
[2017-12-05] MEDS: DOCUSATE SODIUM 50 MG/SENNA 8.6 MG TAB PO SCH (20:17)
--- NOTE | 2017-12-05 21:07 | EKG ---
Date Performed: 12/05/2017 Time Performed: 06:58:28 PTAGE: 62 years EKG: Sinus rhythm MODERATE INTRAVENTRICULAR CONDUCTION DELAY ABNORMAL ECG PREVIOUS TRACING : 10/27/2016 20.39 Since the previous tracing, no significant change noted DOCTOR: Salinas Brown Interpretating Date/Time 12/05/2017 21:07:13
[2017-12-05] MEDS: HYDROXYCHLOROQUINE SULFATE 200 MG TAB PO SCH (22:01)
[2017-12-05] MEDS: FLECAINIDE ACETATE 100 MG TAB PO SCH (22:01)
[2017-12-06] VITALS (27 sets, daily range): BP systolic 115–150; BP diastolic 58–71; PULSE 70–92; RESP 17–21; TEMP 98.2–101.1; O2SAT 90–96
[2017-12-06] MEDS: MORPHINE SULFATE 4 MG/ML INJ IV PUSH PRN ×2 (01:19→04:43)
[2017-12-06] MEDS: HYDROmorphone HCL 2 MG TAB PO PRN ×3 (02:13→21:24)
[2017-12-06 06:07] LABS: HEMATOCRIT 34.2 % (39.0-51.0); HEMOGLOBIN 10.9 GM/DL (13.0-17.0); MEAN CELL VOLUME 96.6 FL (80.0-100.0); MEAN CORPUSCULAR HEMOGLOBIN 30.9 PG (27.0-34.0); MEAN PLATELET VOLUME 7.9 FL (7.0-11.0); PLATELET COUNT 130 TH/MM3 (150-450); RED BLOOD COUNT 3.55 MIL/MM3 (4.50-5.90); RED CELL DISTRIBUTION WIDTH 16.8 % (11.6-17.2)
[2017-12-06 06:36] LABS: BICARBONATE 30.1 MEQ/L (21.0-32.0); CALCIUM 8.7 MG/DL (8.5-10.1); CREATININE 0.9 MG/DL (0.60-1.30)
--- NOTE | 2017-12-06 07:46 | PD.VS.PN ---
Subjective POD #: 1 Procedure(s): R groin reconstruction Subjective/Hospital Course Sitting in chair this morning feels well overall groin pain controlled has voided since Blanco out Objective Vitals/I&O Date Time Temp Pulse Resp B/P (MAP) Pulse Ox O2 Delivery O2 Flow Rate FiO2 12/06/17 07:00 85 12/06/17 06:18 88 12/06/17 05:17 87 12/06/17 04:18 91 12/06/17 03:49 92 12/06/17 03:11 101.1 90 18 150/69 (96) 92 12/06/17 02:06 89 12/06/17 01:34 88 12/06/17 00:10 81 12/05/17 23:35 72 12/05/17 23:35 97.9 67 17 150/64 (92) 92 12/05/17 22:40 66 12/05/17 21:36 61 12/05/17 20:20 62 12/05/17 19:36 58 12/05/17 19:25 98.0 58 18 154/67 (96) 92 12/05/17 18:00 67 12/05/17 17:00 69 12/05/17 16:00 63 12/05/17 15:00 97.9 59 19 128/63 (84) 96 12/05/17 15:00 64 12/05/17 15:00 19 12/05/17 14:00 56 12/05/17 13:00 61 12/05/17 13:00 127/63 (84) 12/05/17 12:55 120/58 (78) 12/05/17 12:51 98.3 57 17 90/55 (67) 97 12/05/17 12:26 98.1 59 16 100/57 (71) 93 Nasal Cannula 2 12/05/17 12:00 58 16 100/57 (71) 93 Room Air 12/05/17 11:45 59 16 91/54 (66) 93 Room Air 12/05/17 11:30 59 16 105/50 (68) 95 Room Air 12/05/17 11:15 62 16 109/56 (73) 100 12/05/17 11:00 63 14 99/57 (71) 99 Nasal Cannula 2 12/05/17 10:49 98.1 68 16 109/54 (72) 98 Nasal Cannula 12/06/17 12/06/17 12/06/17 07:00 15:00 23:00 Intake Total 480 ml Output Total 750 ml Balance -270 ml Exam: R groin Prevena in tact No groin swelling Palpable pedal pulse Laboratory Laboratory Tests Test 12/06/17 05:03 White Blood Count 8.0 Red Blood Count 3.55 Hemoglobin 10.9 Hematocrit 34.2 Mean Corpuscular Volume 96.6 Mean Corpuscular Hemoglobin 30.9 Mean Corpuscular Hemoglobin Concent 32.0 Red Cell Distribution Width 16.8 Platelet Count 130 Mean Platelet Volume 7.9 Blood Urea Nitrogen 11 Creatinine 0.90 Random Glucose 118 Calcium Level 8.7 Sodium Level 137 Potassium Level 4.3 Chloride Level 101 Carbon Dioxide Level 30.1 Anion Gap 6 Estimat Glomerular Filtration Rate 85 Assessment and Plan Plan POD#1 s/p R groin reconstruction palpable pedal pulse and pain controlled 1. normalize 2. D/C planning - later today vs tomorrow 3. OOB/ambulate Discharge Planning later today or tomorrow Izaiah Simms MD Dec 06, 2017 07:46
[2017-12-06] MEDS ORDERED: FLORASTOR 250 MG PO SCH (09:00)
[2017-12-06] MEDS: FLECAINIDE ACETATE 100 MG TAB PO SCH ×2 (09:00→21:23)
[2017-12-06] MEDS: FAMOTIDINE 20 MG TAB PO SCH ×2 (09:18→21:24)
[2017-12-06] MEDS: methylPREDNISolone 4 MG TAB PO SCH (09:18)
[2017-12-06] MEDS: PRAVASTATIN SOD 20 MG TAB PO SCH (09:18)
[2017-12-06] MEDS: ASPIRIN 325 MG TAB PO SCH (09:19)
[2017-12-06] MEDS: METOPROLOL TARTRATE 25 MG TAB PO SCH ×3 (09:19→17:20)
[2017-12-06] MEDS: metFORMIN HCL 500 MG TAB PO SCH ×2 (09:19→17:19)
[2017-12-06] MEDS: DOCUSATE SODIUM 50 MG/SENNA 8.6 MG TAB PO SCH ×2 (09:19→21:23)
[2017-12-06] MEDS: HYDROXYCHLOROQUINE SULFATE 200 MG TAB PO SCH ×2 (09:19→21:24)
[2017-12-06] MEDS: CYANOCOBALAMIN 1,000 MCG TAB PO SCH (09:21)
[2017-12-06] MEDS: ENOXAPARIN SODIUM 40 MG/0.4 ML SYRINGE SQ SCH (09:26)
[2017-12-06] MEDS ORDERED: ACETAMINOPHEN 325 MG TAB PO PRN (21:15)
[2017-12-06] MEDS: TAMSULOSIN HCL 0.4 MG CAP PO SCH (21:24)
[2017-12-07] VITALS (11 sets, daily range): BP systolic 129–133; BP diastolic 61–68; PULSE 68–81; RESP 20; TEMP 98–98.9; O2SAT 95–98
[2017-12-07] MEDS: HYDROmorphone HCL 2 MG TAB PO PRN (05:29)
--- NOTE | 2017-12-07 07:44 | PD.VS.PN ---
Subjective POD #: 2 Procedure(s): R groin reconstruction Subjective/Hospital Course pain much better this morning able to get OOB much better ambulating independently andry po voiding Objective Vitals/I&O Date Time Temp Pulse Resp B/P (MAP) Pulse Ox O2 Delivery O2 Flow Rate FiO2 12/07/17 06:00 72 12/07/17 05:27 20 12/07/17 05:00 70 12/07/17 04:00 68 12/07/17 03:00 98.9 74 20 129/61 (83) 98 12/07/17 03:00 69 12/07/17 02:00 68 12/07/17 01:00 72 12/07/17 00:00 70 12/06/17 23:00 99.4 70 20 115/59 (77) 90 12/06/17 23:00 71 12/06/17 22:00 72 12/06/17 21:00 70 12/06/17 20:00 78 12/06/17 19:00 101.1 77 20 138/66 (90) 91 12/06/17 19:00 81 12/06/17 18:00 80 12/06/17 17:00 76 12/06/17 16:00 76 12/06/17 15:00 99.8 78 19 148/70 (96) 92 12/06/17 15:00 76 12/06/17 14:00 80 12/06/17 13:00 77 12/06/17 12:53 133/71 (91) 12/06/17 12:00 76 12/06/17 11:00 87 12/06/17 11:00 98.5 82 21 123/69 (87) 94 12/06/17 10:00 84 12/06/17 09:00 86 12/06/17 08:00 87 12/07/17 12/07/17 12/07/17 07:00 15:00 23:00 Intake Total 400 ml Balance 400 ml Exam: sitting in chair, no distress palpable R DP groin soft, minimal medial ecchymoses Assessment and Plan Plan POD#2 s/p R groin reconstruction palpable pedal pulse and pain controlled D/C today Discharge Planning this morning Izaiah Simms MD Dec 07, 2017 07:44
--- NOTE | 2017-12-07 07:45 | PD.VS.DC ---
Discharge Summary Admission Date: Dec 05, 2017 at 06:06 Discharge Date: Dec 07, 2017 Admission Diagnosis: (1) Claudication in peripheral vascular disease Discharge Diagnosis: (1) Claudication in peripheral vascular disease ICD Codes: I73.9 - Peripheral vascular disease, unspecified Brief History from admission Pt with lifestyle limiting R LE claudication and anatomically not amenable to endovascular therapy. Offered groin reconstruction. Procedure(s): R groin reconstruction Significant Findings Laboratory Tests Test 12/05/17 07:20 12/06/17 05:03 White Blood Count 3.8 TH/MM3 (4.0-11.0) Red Blood Count 3.69 MIL/MM3 (4.50-5.90) 3.55 MIL/MM3 (4.50-5.90) Hemoglobin 11.3 GM/DL (13.0-17.0) 10.9 GM/DL (13.0-17.0) Hematocrit 35.6 % (39.0-51.0) 34.2 % (39.0-51.0) Mean Corpuscular Hemoglobin Concent 31.9 % (32.0-36.0) Platelet Count 133 TH/MM3 (150-450) 130 TH/MM3 (150-450) Monocytes (%) (Auto) 17.8 % (0.0-8.0) Lymphocytes # (Auto) 0.9 TH/MM3 (1.0-4.8) Band Neutrophils % 12 % (0-6) Monocytes % 10 % (0-8) Myelocytes 4 % (0-0) Platelet Estimate LOW (NORMAL) Ovalocytes 1+ (NORMAL) Blood Urea Nitrogen 19 MG/DL (7-18) Estimat Glomerular Filtration Rate 81 ML/MIN (>89) 85 ML/MIN (>89) Random Glucose 118 MG/DL (74-106) Hospital Course: He did well post-operatively. His Blanco was removed POD#1. By POD#2 he was ambulating, had a palpable pedal pulse and no groin problems. Ready for d/c. Discharge Condition: Good Discharge Disposition: Discharge Home Any questions or concerns: Call [facility] at [facility] [phone] Izaiah Simms MD Dec 07, 2017 07:45
[2017-12-07] MEDS: methylPREDNISolone 4 MG TAB PO SCH (09:41)
[2017-12-07] MEDS: FAMOTIDINE 20 MG TAB PO SCH (09:41)
[2017-12-07] MEDS: FLECAINIDE ACETATE 100 MG TAB PO SCH (09:42)
[2017-12-07] MEDS: CYANOCOBALAMIN 1,000 MCG TAB PO SCH (09:42)
[2017-12-07] MEDS: METOPROLOL TARTRATE 25 MG TAB PO SCH (09:43)
[2017-12-07] MEDS: HYDROXYCHLOROQUINE SULFATE 200 MG TAB PO SCH (09:43)
[2017-12-07] MEDS: ASPIRIN 325 MG TAB PO SCH (09:43)
[2017-12-07] MEDS: PRAVASTATIN SOD 20 MG TAB PO SCH (09:44)
[2017-12-07] MEDS: DOCUSATE SODIUM 50 MG/SENNA 8.6 MG TAB PO SCH (09:44)
[2017-12-07] MEDS: metFORMIN HCL 500 MG TAB PO SCH (09:44)
[2017-12-07] MEDS: ENOXAPARIN SODIUM 40 MG/0.4 ML SYRINGE SQ SCH (09:45)
== END 2017-12-07 10:00 | disposition home or self-care (01) | DRG 271 ==
LOC: HSDI 12-05 06:06 → HCPC 12-05 12:36
PROVIDERS: ADMIT Surgery; ATTEND Surgery
PROC: 04CH0ZZ Extirpation of Matter from Right External Iliac Artery, Open Approach (ICD-10-PCS; 2017-12-05)
PROC: 04CK0ZZ Extirpation of Matter from Right Femoral Artery, Open Approach (ICD-10-PCS; 2017-12-05)
PROC: 041H0JQ Bypass Right External Iliac Artery to Lower Extremity Artery with Synthetic Substitute, Open Approach (ICD-10-PCS; principal; 2017-12-05 08:00)
PROC: 041K0JH Bypass Right Femoral Artery to Right Femoral Artery with Synthetic Substitute, Open Approach (ICD-10-PCS; 2017-12-05 08:00)
DX: E11.51 Type 2 diabetes mellitus with diabetic peripheral angiopathy without gangrene (principal); Z68.41 Body mass index [BMI] 40.0-44.9, adult; I10 Essential (primary) hypertension; E78.5 Hyperlipidemia, unspecified; E66.9 Obesity, unspecified; Z79.84 Long term (current) use of oral hypoglycemic drugs; Z87.891 Personal history of nicotine dependence
CPT/HCPCS: 80048; 85007; 85027; 85610; 86850; 86900; 86901; 93005; C1768; J0131; J0330; J0690; J1644; J1650; J2250; J2270; J2370; J2405; J2720; J3010; J7120; J7509

== ENCOUNTER → 2018-01-09 | Outpatient (CLI) | payer BC ==
[~2018-01-09] MED LIST changes: +METH8TAB3 PO; +METO25TA3 PO; +SACC1CAP3 PO; +VITA500T4 PO
== END ==
LOC: CLAB 14:39
PROVIDERS: ATTEND Internal Medicine Hematology & Oncology
DX: D64.9 Anemia, unspecified (principal); D72.819 Decreased white blood cell count, unspecified
CPT/HCPCS: 36415; 86790; 88184; 88185